=== PATIENT | female | born 1955 | race Caucasian/White ===

== ENCOUNTER 2018-02-15 20:22 | Inpatient (IN) ==
--- NOTE | 2018-02-15 20:55 | Emergency Department Report ---
SOB HPI - General Chief Complaint: Shortness of Breath/Dyspnea Stated Complaint: Diff breathing Time Seen by Provider: 02/15/18 20:41 Source: patient Limitations: physical limitation - History of Present Illness Patient is a 62-year-old female who presents to the emergency room with complaints of shortness of breath and cough. She states she was diagnosed with pneumonia [address] Hannah. She's completed a course of amoxicillin yesterday. She doesn't feel she's improved at all. She is very weak. She is requiring more oxygen than usual. Normally she just sleeps with oxygen (due to COPD), but she's had to use 1-1-1/2 L throughout the day. She states last night she had several episodes where she "couldn't breathe." She was diagnosed with laryngeal cancer in July 2017. She's gone through radiation and chemotherapy. She had surgical resection of the tumor and positive lymph node by Dr. Crawford (ENT). She has lost at least 30 pounds since July as she can only take in water by mouth and has a feeding tube. MD Complaint: shortness of breath, cough - Related Data Home Medications Medication Instructions Recorded Confirmed Ana-Александр Ortegale (potassium 10 meq PO DAILY 45 Days #45 cap 12/01/17 02/15/18 chloride ER) 10 mEq capsule magnesium oxide 400 mg tablet 400 mg PO DAILY 30 Days #30 tab 12/01/17 02/15/18 Methocarbamol [Robaxin] 500 mg PO TID PRN 02/15/18 02/15/18 Multivitamin [One Daily] 1 each PO DAILY 02/15/18 02/15/18 Tramadol [Ultram] 50 mg PO TID PRN 02/15/18 02/15/18 Triamterene/Hctz 37.5/25 Tab 0.5 tab PO DAILY 02/15/18 02/15/18 [MAXZIDE-25 eqv] Previous Rx's Medication Instructions Recorded albuterol sulfate HFA 90 2 puff INH QID #18 g 08/19/17 mcg/actuation aerosol inhaler Neurontin (gabapentin) 600 mg 1,200 mg PO BID #360 tab 12/26/17 tablet Advair Diskus (Fluticasone 250 1 puff INH BID #60 each 01/17/18 mcg-salmeterol 50 mcg)dose powdr for inhalation MS Contin (Morphine sulfate ER)15 15 mg PO TID #90 tab 01/18/18 mg tablet Celexa (citalopram) 20 mg tablet 40 mg PO DAILY #30 tab 01/19/18 trazodone 150 mg tablet 150 mg PO HS #30 tab 01/30/18 Allergies Allergy/AdvReac Type Severity Reaction Status Date / Time venom-honey bee Allergy Severe ANAPHYLAXIS Verified 02/15/18 20:49 prednisone Allergy Intermediate SHAKY,PERSONALITY Verified 02/15/18 20:49 CHANGES latex Allergy Mild RASH,SKIN Verified 02/15/18 20:49 COMES OFF bupropion Allergy Unknown HYPERTENSIO Verified 02/15/18 20:49 N etodolac Allergy Unknown Verified 02/15/18 20:49 codeine AdvReac Unknown PERSONALITY Verified 02/15/18 20:49 CHANGES Review of Systems All systems: reviewed and negative except as stated (has felt feverish and had chills today, cough, shortness of breath, weakness, urinary frequency, dry mouth , diarrhea) PFSH Patient Stated Medical History Migraine Yes Cataracts Yes Dental Problems Yes Hypertension Yes Other Cardiology Yes: blood clots in lungs Asthma Yes Bronchitis Yes Chronic Obstructive Pulmonary Yes: 1L/NC Disease (COPD) Pneumonia Yes: 2013 Pulmonary Embolism Yes Other Respiratory Yes Hx Urinary Tract Infection Yes: HX Clotting Problems Yes: PULMONARY EMBOLISM Osteoarthritis Yes Other Musculoskeletal Yes: FIBROMYALGIA Depression Yes Endometriosis Yes Post Menopausal Yes Clinic Medical History (Last Reviewed 01/04/18 @ 13:58 by SHONA Kevin) Throat cancer (Acute Medical) Anxiety (Chronic Medical) Asthma (Chronic Medical) Bone disorder (Chronic Medical) COPD (chronic obstructive pulmonary disease) (Chronic Medical) Cataracts, bilateral (Chronic Medical) Colon polyps (Chronic Medical) DVT (deep venous thrombosis) (Chronic Medical) Depression (Chronic Medical) Migraine headache (Chronic Medical) Neuropathy (Chronic Medical) Osteoporosis (Chronic Medical) Pneumonia (Chronic Medical) Surgical History: donald cataracts 2009. partial hysterecomy. Placement of PEG tube 08/12/2017. Insertion of Power Port 08/12/2017. Family History: Family History (Last Reviewed 01/04/18 @ 13:58 by SHONA Kevin) Mother Arthritis DVT (deep vein thrombosis) in Cancer of lung IBS (irritable bowel syndrome) Muscle disease Fibromyalgia Sister Arthritis Cancer of utero-ovarian Muscle disease Brother Cancer of lung Father Heart failure High blood pressure High cholesterol Above reviewed - Social History Smoking status: Current every day smoker (1 pack per day) Packs-years: 30 Substance use type: marijuana (smokes daily) Alcohol intake frequency: does not drink Current occupational status: disabled Current residence: Apartment/Private Home Social history: Dr. Hannah-oncologist Dr. Crawford-ENT Dr. Wang-PCP Physical Exam - Limitations Limitations: no limitations - General General appearance: cachectic - Normal Exams: Head:: Normocephalic without trauma Eyes:: Pupils are PERRLA w/ EOMI Neck:: Full range of motion, without adenopathy Cardiovascular:: Regular rate and rhythm, capillary refill Abdomen:: non-distended Integumentary:: No rashes Neurological:: Patient is alert, and oriented, exams w/o gross deficits Psychiatric:: Patient exhibits, appropriate attention - ENT ENT exam: Present: mucous membranes dry - Chest Chest inspection: Present: other (port right chest) - Respiratory Respiratory exam: Present: wheezes (diffuse inspiratory and expiratory), accessory muscle use - Abdominal Exam Abdominal exam: Present: tenderness (left upper quadrant. Feeding tube.) - Extremities Exam Extremities exam: Present: pedal edema (trace) Course - Consultations Consultation #1: Dr Valladares - accepted for hospitalization Time: 23:06 Vital Signs Temperature 97.8 F 02/15/18 20:30 Pulse Rate 90 02/15/18 20:30 Respiratory Rate 20 02/15/18 20:30 Blood Pressure 133/79 02/15/18 20:30 Pulse Oximetry 93 02/15/18 20:30 Temperature 97.8 F 02/15/18 20:30 Pulse Rate 85 02/15/18 23:47 Respiratory Rate 20 02/15/18 23:47 Blood Pressure 115/76 02/15/18 23:47 Pulse Oximetry 94 02/15/18 23:47 Shortness of Breath/Dyspnea - [facility] Narrative Medical decision making narrative: Given patient's presentation of weakness, possibility of pneumonia, and hyponatremia, hospitalist service was contacted for admission. She was given a breathing treatment while in the ED and required 2 L of oxygen to keep her sats greater than 90%. She took her oxygen off to go to the restroom and sats decreased to lower 80s. After discussing case with hospitalist, Levaquin 750 mg IV was given. As patient was being dismissed to the floor, she mentions that she has had some burning in her chest worsens her breathing treatment. Troponin and EKG were ordered for further evaluation. Dr. Barton will follow up on these results, as results are pending at time of this dictation. Admission orders per tele-hospitalist. - Differential Diagnosis Likely: acute exacerbation of chronic obstructive airways disease, congestive heart failure, community acquired pneumonia - Lab Data Result diagrams: 02/15/18 21:49 02/15/18 21:49 Lab Results 02/15/18 02/15/18 02/15/18 Range/Units 21:40 21:49 21:49 WBC 7.0 (4.5-11.0) T/MM3 RBC 4.01 (4.00-5.20) M/MM3 Hgb 14.4 (12-16) GM/DL Hct 39.6 (36-46) % MCV 98.8 (80-100) UM3 MCH 35.9 H (26-34) UUG MCHC 36.4 (31-37) GM/DL RDW Std Deviation 43.9 (36.9-50.2) FL Plt Count 228 (130-400) T/MM3 MPV 8.9 L (9.4-12.4) UM3 Immature Gran % (Auto) 0.0 (0.0-0.5) % Neut % (Auto) 79.7 H (33-66) % Lymph % (Auto) 11.8 L (23-45) % [place] % (Auto) 8.3 (0-9.0) % Eos % (Auto) 0.1 (0-4) % Baso % (Auto) 0.1 (0-2) % Neut # (Auto) 5.6 (1.8-7.7) T/MM3 Lymph # (Auto) 0.8 L (1-4.8) T/MM3 [place] # (Auto) 0.6 (0-0.8) T/MM3 Eos # (Auto) 0.0 (0-0.5) T/MM3 Baso # (Auto) 0.0 (0-0.2) T/MM3 Abs Immat Gran (auto) 0.00 (0.00-0.03) T/MM3 Turbidity < 20 (0-20) Sodium 126 L (134-144) MEQ/L Potassium 4.2 (3.6-5) MEQ/L Chloride 84 L (98-107) MEQ/L Carbon Dioxide 34 H (22-30) MEQ/L Anion Gap 8 (5-15) meq/L BUN 12.0 (7-17) MG/DL Creatinine 0.4 L (0.7-1.2) mg/dL GFR Calculation 163 BUN/Creatinine Ratio 30 H (6-26) RATIO Glucose 85 (65-110) MG/DL Calculated Osmolality 242 L (261-280) MOSM/KG Calcium 9.8 (8.4-10.2) MG/DL Total Bilirubin 0.30 (0.20-1.30) MG/DL Icterus Index < 2 (0-7) AST 43 H (14-36) U/L ALT 32 (1-35) U/L Alkaline Phosphatase 118 (38-126) U/L Total Protein 7.2 (6.3-8.2) g/dL Albumin 4.4 (3.5-5.0) g/dL Globulin 2.8 (2.4-3.6) G/DL Albumin/Globulin Ratio 1.6 (1.1-2.2) RATIO Plasma Lactate (0.6-2.2) MMOL/L Specimen Hemolysis < 15 (0-25) Ur Collection Type Urine, void-cc/notcc Urine Color Yellow (YELLOW) Urine Clarity Clear Urine pH 7.5 (5.0-8.0) Ur Specific [place] 1.010 L (1.015-1.025) Urine Protein Negative (NEGATIVE) Urine Glucose (UA) Negative (NEGATIVE) Urine Ketones Negative (NEGATIVE) Urine Occult Blood Trace-intact (NEGATIVE) Urine Nitrate Negative (NEGATIVE) Urine Bilirubin Negative (NEGATIVE) Urine Urobilinogen 0.2 (NORMAL) EU/DL Ur Leukocyte Esterase Negative (NEGATIVE) Urinalysis Comment Microscopic not ind. 02/15/18 Range/Units 22:31 WBC (4.5-11.0) T/MM3 RBC (4.00-5.20) M/MM3 Hgb (12-16) GM/DL Hct (36-46) % MCV (80-100) UM3 MCH (26-34) UUG MCHC (31-37) GM/DL RDW Std Deviation (36.9-50.2) FL Plt Count (130-400) T/MM3 MPV (9.4-12.4) UM3 Immature Gran % (Auto) (0.0-0.5) % Neut % (Auto) (33-66) % Lymph % (Auto) (23-45) % [place] % (Auto) (0-9.0) % Eos % (Auto) (0-4) % Baso % (Auto) (0-2) % Neut # (Auto) (1.8-7.7) T/MM3 Lymph # (Auto) (1-4.8) T/MM3 [place] # (Auto) (0-0.8) T/MM3 Eos # (Auto) (0-0.5) T/MM3 Baso # (Auto) (0-0.2) T/MM3 Abs Immat Gran (auto) (0.00-0.03) T/MM3 Turbidity (0-20) Sodium (134-144) MEQ/L Potassium (3.6-5) MEQ/L Chloride (98-107) MEQ/L Carbon Dioxide (22-30) MEQ/L Anion Gap (5-15) meq/L BUN (7-17) MG/DL Creatinine (0.7-1.2) mg/dL GFR Calculation BUN/Creatinine Ratio (6-26) RATIO Glucose (65-110) MG/DL Calculated Osmolality (261-280) MOSM/KG Calcium (8.4-10.2) MG/DL Total Bilirubin (0.20-1.30) MG/DL Icterus Index (0-7) AST (14-36) U/L ALT (1-35) U/L Alkaline Phosphatase (38-126) U/L Total Protein (6.3-8.2) g/dL Albumin (3.5-5.0) g/dL Globulin (2.4-3.6) G/DL Albumin/Globulin Ratio (1.1-2.2) RATIO Plasma Lactate 0.7 (0.6-2.2) MMOL/L Specimen Hemolysis (0-25) Ur Collection Type Urine Color (YELLOW) Urine Clarity Urine pH (5.0-8.0) Ur Specific [place] (1.015-1.025) Urine Protein (NEGATIVE) Urine Glucose (UA) (NEGATIVE) Urine Ketones (NEGATIVE) Urine Occult Blood (NEGATIVE) Urine Nitrate (NEGATIVE) Urine Bilirubin (NEGATIVE) Urine Urobilinogen (NORMAL) EU/DL Ur Leukocyte Esterase (NEGATIVE) Urinalysis Comment - Radiology Data Chest x-ray reviewed by Dr. Barton Disposition Clinical Impression: Hyponatremia, Pneumonia, Acute exacerbation of chronic obstructive airways disease Disposition: To [facility] Acute Care Condition: Stable Time of Disposition: 23:00 - Seen By: mary
[2018-02-15] MEDS ORDERED: ALBUTEROL/IPRATROPIUM 2.5mg-0.5mg/3ml NEB AEROSOL ONE (21:19)
[2018-02-15] MEDS: LEVOFLOXACIN PB 750 MG/150 ML BAG IV SCH (23:44)
[2018-02-15] MEDS: NS FLUSH BAG 500ml IV PRN (23:44)
[2018-02-16] MEDS ORDERED: FALL RISK - PHARMACY CONSULT MC ONE (00:56)
[2018-02-16] MEDS ORDERED: ALBUTEROL/IPRATROPIUM 2.5mg-0.5mg/3ml NEB AEROSOL PRN (01:07)
[2018-02-16] MEDS: METHYLPREDNISOLONE SOD SUCC 125mg/2ml INJECTION IVP SCH ×3 (01:17→21:04)
[2018-02-16] MEDS: TRAMADOL 50 MG TABLET PO SCH ×4 (01:17→21:03)
[2018-02-16] MEDS: METHOCARBAMOL 500 MG TABLET PO PRN ×2 (01:18→09:13)
[2018-02-16] MEDS: GABAPENTIN 600 MG TABLET PO SCH ×3 (01:18→21:03)
[2018-02-16] MEDS: NICOTINE 21 MG PATCH TD SCH ×2 (02:30→13:12)
[2018-02-16] MEDS ORDERED: IOHEXOL 300mg/ml 75ml INJECTION ONE (07:14)
[2018-02-16] MEDS ORDERED: SALINE FLUSH 10ml SYRINGE ONE (07:14)
[2018-02-16] MEDS: ALBUTEROL/IPRATROPIUM 2.5mg-0.5mg/3ml NEB AEROSOL SCH ×4 (07:56→19:48)
--- NOTE | 2018-02-16 08:20 | XRay Report ---
INDICATION: soa, cough PROCEDURE: CHEST 2-VIEWS UPRIGHT (PA & LAT) Encounter: Initial Comparison: August 29, 2017 Findings: The lungs are stable in appearance without new focal airspace consolidation. Emphysema and hyperinflation. Right IJ port catheter. There is no pleural effusion or pneumothorax. The heart size, pulmonary vascularity and mediastinal contours are unchanged. IMPRESSION: Stable appearance of the chest without acute cardiopulmonary disease. COPD. .
[2018-02-16] MEDS: CITALOPRAM 40 MG TABLET PO SCH (09:13)
[2018-02-16] MEDS: MAGNESIUM OXIDE 400 MG TABLET PO SCH (09:13)
--- NOTE | 2018-02-16 10:35 | History & Physical Report ---
History of Present Illness Date: 02/16/18 Chief complaint: shortness of breath HPI: Mrs. Garcia is a 62-year-old female who presented to the emergency room yesterday evening complaining of increasing dyspnea for 2 days and nonproductive cough. She was diagnosed with pneumonia 2 weeks earlier after PET scan revealed infiltrate/inflammatory changes at the right base. She was treated with amoxicillin which was completed 2 days ago. Patient reported that she really didn't feel sick at the time Dr. Hannah had the PET scan done for follow-up of head and neck cancer. However in the intervening time she developed increasing dyspnea, increased hypoxia requiring utilization of 1.5 L oxygen 24 hours a day instead of just at night, persistent wheezing, and alternate sensations of chilling and feeling hot. Patient reports that she never took her temperature but is concerned that she had a fever. For several days she was too short of breath actually cough and she is frustrated that she' s been unable to clear secretions because she feels congested. She denies rhinorrhea or sore throat and doesn't feel like she has a "cold" but reports her allergies have been bad. She describes worsening generalized weakness and 30 pound weight loss since cancer diagnosis. She denies edema in the extremities but acknowledges that she self resumed use of diuretics a couple of weeks ago due to edema in the lower extremities. She acknowledges significant fluid intake during the day for chronic dry mouth following radiation therapy for head and neck cancer. Patient reports she was diagnosed with laryngeal carcinoma and thyroid cancer in July 2017 and subsequently underwent resection of tumor and a positive lymph node in July 2017 followed by radiation therapy and chemotherapy which was completed 2 months ago. Chest x- ray in the emergency room revealed hyperinflated lungs consistent with COPD/ emphysema. Patient was admitted with COPD exacerbation and incidental finding of hyponatremia. Review of Systems All systems PM: 10-point ROS was reviewed, no additional remarkable complaints except (chronic cough, urinary frequency, dry mouth, diarrhea with 4 loose stools daily in conjunction with tube feedings, numbness in the hands and feet, chronic back pain, and slimy sensation to the tongue with bad taste in her mouth.) Past Medical History Medical History: Medical History (Last Updated 02/16/18 @ 10:42 by Tessa Ko MD) DDD (degenerative disc disease) DJD (degenerative joint disease) Fibromyalgia Nephrolithiasis Pulmonary emboli 15-20 years ago Throat cancer Anxiety Asthma Bone disorder COPD (chronic obstructive pulmonary disease) Cataracts, bilateral Colon polyps DVT (deep venous thrombosis) Depression Migraine headache Neuropathy Osteoporosis Pneumonia Surgical History: donald cataracts 2009. partial hysterecomy. Placement of PEG tube 08/12/2017. Insertion of Power Port 08/12/2017. Laryngeal cancer resection/lymph node biopsy July 2017 Family History: Family History (Last Reviewed 01/04/18 @ 13:58 by Carrie Brown [facility]) Mother Arthritis DVT (deep vein thrombosis) in Cancer of lung IBS (irritable bowel syndrome) Muscle disease Fibromyalgia Sister Arthritis Cancer of utero-ovarian Muscle disease Brother Cancer of lung Father Heart failure High blood pressure High cholesterol Family History: As Above - Social History Smoking status: Current every day smoker (1 pack per day) Substance use type: marijuana (daily) Alcohol intake frequency: does not drink Household members: spouse Current residence: Apartment/Private Home Social history: PCP- Oncology-Dr. Hannah ENT-Dr. Crawford Alternate decision maker-patient's CODE STATUS-DO NOT INTUBATE Medications Home Medications Medication Instructions Recorded Confirmed Type albuterol sulfate HFA 90 2 puff INH QID #18 g 08/19/17 02/15/18 Rx mcg/actuation aerosol inhaler Chel Bran[place]inkle (potassium 10 meq PO DAILY 45 Days #45 cap 12/01/17 02/15/18 History chloride ER) 10 mEq capsule magnesium oxide 400 mg tablet 400 mg PO DAILY 30 Days #30 tab 12/01/17 02/15/18 History Neurontin (gabapentin) 600 mg 1,200 mg PO BID #360 tab 12/26/17 02/15/18 Rx tablet Advair Diskus (Fluticasone 250 1 puff INH BID #60 each 01/17/18 02/15/18 Rx mcg-salmeterol 50 mcg)dose powdr for inhalation MS Contin (Morphine sulfate ER)15 15 mg PO TID #90 tab 01/18/18 02/15/18 Rx mg tablet Celexa (citalopram) 20 mg tablet 40 mg PO DAILY #30 tab 01/19/18 02/15/18 Rx trazodone 150 mg tablet 150 mg PO HS #30 tab 01/30/18 02/15/18 Rx Methocarbamol [Robaxin] 500 mg PO TID PRN 02/15/18 02/15/18 History Multivitamin [One Daily] 1 each PO DAILY 02/15/18 02/15/18 History Tramadol [Ultram] 50 mg PO TID PRN 02/15/18 02/15/18 History Triamterene/Hctz 37.5/25 Tab 0.5 tab PO DAILY 02/15/18 02/15/18 History [MAXZIDE-25 eqv] Allergies Allergy/AdvReac Type Severity Reaction Status Date / Time venom-honey bee Allergy Severe ANAPHYLAXIS Verified 02/15/18 20:49 prednisone Allergy Intermediate SHAKY,PERSONALITY Verified 02/15/18 20:49 CHANGES latex Allergy Mild RASH,SKIN Verified 02/15/18 20:49 COMES OFF bupropion Allergy Unknown HYPERTENSIO Verified 02/15/18 20:49 N etodolac Allergy Unknown Verified 02/15/18 20:49 codeine AdvReac Unknown PERSONALITY Verified 02/15/18 20:49 CHANGES Exam Vital Signs: Temperature 96.9 F 02/16/18 08:48 Pulse Rate 92 02/16/18 08:48 Respiratory Rate 18 02/16/18 08:48 Blood Pressure 124/82 02/16/18 08:48 Pulse Oximetry 91 -3 L 02/16/18 08:48 EXAM: General-cachectic female, NAD, hoarse voice HEENT-PERRL, EOMI without nystagmus, conjugate gaze, conjunctiva clear, sclera anicteric, facial structures symmetric, oropharynx faint yellow lemon plaques on tongue, neck supple and without adenopathy Lungs-clear to percussion, diffuse expiratory wheezing throughout lung dickey, no rhonchi or crackles Cardiac-regular rhythm, S1-S2-heart tones partially obscured by respiratory sounds Abd-moderately distended, soft, nontender, bowel sounds present; G-tube site clean and dry Ext-without edema Skin-without wounds or generalized rash MS-muscle wasting evident diffusely Neuro-cranial nerves III through XII intact, normal motor tone/power proximally/ distally upper and lower extremities, no tremors, sensation grossly intact to touch 4 extremities Psych-calm, cooperative, flat affect Height/Weight/BMI: Height 1.63 m Weight 41.9 kg Body Mass Index 16.2 Results - Labs CBC & Chem 7: 02/16/18 07:52 02/16/18 07:52 Labs: Initial white count in the emergency room 7.0 with hemoglobin 14.4 and unremarkable differential; sodium last night 126 with chloride 84 and creatinine 0.4; liver enzymes unremarkable, lactic acid 0.7-1.5, procalcitonin < 0.05 Urinalysis unremarkable Urine electrolytes/osmolality pending - Imaging and Cardiology Chest x-ray Status: image reviewed by me (hyperinflated lung dickey without infiltrate or failure; PAC right upper chest/right IJ) Assessment and Plan (1) Hyponatremia Current visit: Yes Status: Acute (2) Acute exacerbation of chronic obstructive airways disease Current visit: Yes Status: Acute Assessment and Plan: Impression: COPD with acute exacerbation Hyponatremia Weakness, generalized Thrush Tobacco abuse Weight loss, probable malnutrition Laryngeal carcinoma Anxiety/depression DDD/DJD hx of PE-remote Plan: Mrs. Garcia is admitted with acute COPD exacerbation following treatment for recent pneumonia. Radiographically there is no evidence of pneumonia at present although treatment was initiated for infection overnight with Levaquin which will be continued pending repeat CT scan which should be obtained later today. Treatment for COPD exacerbation with IV steroids and scheduled/prn breathing treatments will be continued. Patient will benefit from additional management of COPD at discharge if she can afford addition of Spiriva or alternate LAMA. Hyponatremia has been incidentally identified and is likely due to excess water intake as she describes drinking at least 12 large glasses of water daily due to dry mouth in conjunction with medications known to contribute to hyponatremia including hydrochlorothiazide and SSRIs. Fluid restriction has been initiated and patient has been encouraged to switch some of her water consumption to Gatorade or Powerade. HCTZ discontinued but will continue SSRIs at this time. May require alternate diuretic if recurrent edema. She may be most effectively treated by adding salt to tube feedings to balance will inevitably return to water ingestion for symptomatic management. Biotene will be resumed to help manage dry mouth and she is encouraged to use ice chips in place of water. Dietary was consulted to assist with tube feeding management. Reassess sodium later today. PT/OT consults. Nystatin suspension for thrush. DO NOT INTUBATE order written after discussion of patient's wishes; she would like active cardiac interventions in the event of cardiac arrest. Old records reviewed; X-rays imaged by myself. - Physician Narrative Narrative: Date: 02/16/18 Time: 1025 Hospital Course Summary Disclaimer: The visit summary below is not to be considered part of the above Progress Note. Hospital Course: Admission 02/15/18-02/16/18 Mrs. Garcia is admitted with acute COPD exacerbation following treatment for recent pneumonia. Radiographically there is no evidence of pneumonia at present although treatment was initiated for infection overnight with Levaquin which will be continued pending repeat CT scan which should be obtained later today. Treatment for COPD exacerbation with IV steroids and scheduled/prn breathing treatments will be continued. Patient will benefit from additional management of COPD at discharge if she can afford addition of Spiriva or alternate LAMA. Hyponatremia has been incidentally identified and is likely due to excess water intake as she describes drinking at least 12 large glasses of water daily due to dry mouth in conjunction with medications known to contribute to hyponatremia including hydrochlorothiazide and SSRIs. Fluid restriction has been initiated and patient has been encouraged to switch some of her water consumption to Gatorade or Powerade. She may be most effectively treated by adding salt to tube feedings to balance will inevitably return to water ingestion for symptomatic management. Biotene will be resumed to help manage dry mouth and she is encouraged to use ice chips in place of water. Dietary was consulted to assist with tube feeding management. Reassess sodium later today. PT/OT consults. Nystatin suspension for thrush. DO NOT INTUBATE order written after discussion of patient's wishes; she would like active cardiac interventions in the event of cardiac arrest.
[2018-02-16] MEDS ORDERED: SALIVA SUBSTITUTE MOUTH SPRAY 1.5oz PO PRN (10:50)
[2018-02-16] MEDS ORDERED: ONDANSETRON 4 MG/2 ML INJECTION IVP PRN (10:58)
[2018-02-16] MEDS ORDERED: ACETAMINOPHEN 325 MG TABLET PO PRN (10:59)
[2018-02-16] MEDS: NICOTINE PATCH REMOVAL TD SCH (13:11)
[2018-02-16] MEDS: NYSTATIN 500,000 units/5 ml ORAL LIQUID PO SCH ×3 (13:13→21:04)
--- NOTE | 2018-02-16 13:32 | CT Scan Report ---
Indication: hypoxia PROCEDURE: CT chest w con: Encounter: Initial Comparison: Chest x-ray from yesterday and CT chest dated December 12, 2017 Technique: Axial CT images were performed through the chest after the administration of intravenous contrast. Coronal and sagittal two-dimensional reformats. Automated Exposure Control and Iterative Reconstruction dose reducing techniques were utilized. Contrast: Omnipaque 300 73 mL Findings: Severe emphysema is again seen throughout both lungs with areas of atelectasis or scarring in the left lower lobe. Scarring in the medial right middle lobe also noted. There are a few small new tree-in-bud type opacities in the right lower lobe, best seen on axial image #54. No pleural effusion or pneumothorax. Areas of mucus plugging the lower lobe bronchi. No axillary or mediastinal adenopathy. Heart size is stable. No pericardial effusion. The upper abdomen shows no acute findings. Gastrostomy tube. Impression: New minimal infectious or inflammatory lower lobe infiltrates could represent atypical pneumonia or minor aspiration event. .
[2018-02-16] MEDS: SODIUM CHLORIDE 1 GM TABLET PO SCH (21:03)
[2018-02-16] MEDS: TRAZODONE 50 MG TABLET PO SCH (21:04)
[2018-02-16] MEDS: SALINE FLUSH 10ml SYRINGE IVF PRN (21:04)
[2018-02-17] MEDS: LEVOFLOXACIN PB 750 MG/150 ML BAG IV SCH (00:02)
[2018-02-17] MEDS: NS FLUSH BAG 500ml IV PRN (00:03)
[2018-02-17] MEDS: ALBUTEROL/IPRATROPIUM 2.5mg-0.5mg/3ml NEB AEROSOL SCH ×4 (06:49→19:27)
[2018-02-17] MEDS: NYSTATIN 500,000 units/5 ml ORAL LIQUID PO SCH ×4 (08:26→20:26)
[2018-02-17] MEDS: NICOTINE 21 MG PATCH TD SCH (08:26)
[2018-02-17] MEDS: ENOXAPARIN 40 MG/0.4 ML INJECTION SQ SCH (08:26)
[2018-02-17] MEDS: CITALOPRAM 40 MG TABLET PO SCH (08:27)
[2018-02-17] MEDS: SODIUM CHLORIDE 1 GM TABLET PO SCH ×2 (08:27→20:26)
[2018-02-17] MEDS: MAGNESIUM OXIDE 400 MG TABLET PO SCH (08:27)
[2018-02-17] MEDS: GABAPENTIN 600 MG TABLET PO SCH ×2 (08:27→20:25)
[2018-02-17] MEDS: TRAMADOL 50 MG TABLET PO SCH ×3 (08:27→20:26)
[2018-02-17] MEDS: NICOTINE PATCH REMOVAL TD SCH (08:28)
[2018-02-17] MEDS: METHYLPREDNISOLONE SOD SUCC 125mg/2ml INJECTION IVP SCH ×2 (08:32→20:27)
--- NOTE | 2018-02-17 16:21 | Progress Note ---
- Date 02/17/18 Subjective: Mrs. Garcia reports that her breathing is improved today with residual exertional dyspnea and some cough now productive of secretions because she can breathe better/deeper and actually clear secretions. She denied chest pain today that no nausea or vomiting. She felt improved enough to try some solid food in addition to her tube feedings. She continues to complain of dry mouth but is tolerating fluid restriction as initiated yesterday for hyponatremia. She denies lightheadedness and has been ambulating in the room without difficulty. Objective Vital signs: Temperature 96.6 F L 02/17/18 07:39 Pulse Rate 101 H 02/17/18 07:39 Respiratory Rate 20 02/17/18 16:00 Blood Pressure 101/64 02/17/18 07:39 Pulse Oximetry 91 -4 L 02/17/18 16:00 I/O 2766/3150 NAD, alert, appears much more comfortable and when seen yesterday Conjunctiva clear, sclera anicteric, oropharynx clear Respirations nonlabored, fair airflow with wheezing present only when the patient coughs; coarse breath sounds at the mid and lower lungs R>L Regular rhythm, S1-S2, low-grade tachycardia Abdomen soft, mildly distended but nontender, bowel sounds present Extremities without edema Height/Weight/BMI: Height 1.63 m Weight 44 kg Body Mass Index 15.8 Results - Labs CBC & Chem 7: 02/17/18 04:33 02/17/18 04:33 Labs: Urine Na 20, urine Cr 30.9, urine osm 227; FeNa 0.21% Prealbmin 16 Assessment and Plan (1) Hyponatremia Current visit: Yes Status: Acute (2) Acute exacerbation of chronic obstructive airways disease Current visit: Yes Status: Acute Assessment and Plan: Impression: COPD with acute exacerbation Acute hypoxic respiratory failure Hyponatremia Weakness, generalized Thrush Tobacco abuse Weight loss, mild protein malnutrition Laryngeal carcinoma Anxiety/depression DDD/DJD hx of PE-remote Plan: Respiratory symptoms improving slowly; convert to oral Levaquin with first dose in the morning. Continue breathing treatments, decrease Solu-Medrol to 62.5 mg IV every 12 hours. Patient previously intolerant of prednisone; anticipate converting to Medrol when ready to switch to oral which could be as soon as tomorrow. Continues to require supplemental oxygen at 3-4 L continuously; previously on 1.5 L at night only. Sodium improving slowly with fluid restriction in addition of salt tablets. Largely due to high intake of free water in conjunction with chronic dry mouth following radiation therapy. No edema at present, patient will need alternate diuretic at discharge for prn use to avoid resumption of HCTZ in future. Ambulated with physical therapy earlier today, desaturated slightly with activities. DVT Prophylaxis: SCD's Resuscitation Status: Do Not Intubate - Physician Narrative Narrative: Date: 02/17/18 Time: 1618 Hospital Course Summary Disclaimer: The visit summary below is not to be considered part of the above Progress Note. Hospital Course: Admission 02/15/18-02/16/18 Mrs. Garcia is admitted with acute COPD exacerbation following treatment for recent pneumonia. Radiographically there is no evidence of pneumonia at present although treatment was initiated for infection overnight with Levaquin which will be continued pending repeat CT scan which should be obtained later today. Treatment for COPD exacerbation with IV steroids and scheduled/prn breathing treatments will be continued. Patient will benefit from additional management of COPD at discharge if she can afford addition of Spiriva or alternate LAMA. Hyponatremia has been incidentally identified and is likely due to excess water intake as she describes drinking at least 12 large glasses of water daily due to dry mouth in conjunction with medications known to contribute to hyponatremia including hydrochlorothiazide and SSRIs. Fluid restriction has been initiated and patient has been encouraged to switch some of her water consumption to Gatorade or Powerade. She may be most effectively treated by adding salt to tube feedings to balance will inevitably return to water ingestion for symptomatic management. Biotene will be resumed to help manage dry mouth and she is encouraged to use ice chips in place of water. Dietary was consulted to assist with tube feeding management. Reassess sodium later today. PT/OT consults. Nystatin suspension for thrush. DO NOT INTUBATE order written after discussion of patient's wishes; she would like active cardiac interventions in the event of cardiac arrest. 02/17/18 Respiratory symptoms improving slowly; convert to oral Levaquin with first dose in the morning. Continue breathing treatments, decrease Solu-Medrol to 62.5 mg IV every 12 hours. Patient previously intolerant of prednisone; anticipate converting to Medrol when ready to switch to oral which could be as soon as tomorrow. Continues to require supplemental oxygen at 3-4 L continuously; previously on 1.5 L at night only. Sodium improving slowly with fluid restriction in addition of salt tablets. Largely due to high intake of free water in conjunction with chronic dry mouth following radiation therapy. No edema at present, patient will need alternate diuretic at discharge for prn use to avoid resumption of HCTZ in future. Ambulated with physical therapy earlier today, desaturated slightly with activities.
[2018-02-17 17:07] VITALS: BMI 16.6
[2018-02-17] MEDS: TRAZODONE 50 MG TABLET PO SCH (20:26)
[2018-02-18] MEDS ORDERED: LEVOFLOXACIN 750 MG TABLET PO SCH (06:30)
[2018-02-18] MEDS: ALBUTEROL/IPRATROPIUM 2.5mg-0.5mg/3ml NEB AEROSOL SCH ×2 (07:05→11:00)
[2018-02-18 08:16] VITALS: BP 113/69; TEMP 96.6
[2018-02-18] MEDS: CITALOPRAM 40 MG TABLET PO SCH (09:07)
[2018-02-18] MEDS: ENOXAPARIN 40 MG/0.4 ML INJECTION SQ SCH (09:07)
[2018-02-18] MEDS: GABAPENTIN 600 MG TABLET PO SCH (09:07)
[2018-02-18] MEDS: METHYLPREDNISOLONE SOD SUCC 125mg/2ml INJECTION IVP SCH (09:08)
[2018-02-18] MEDS: MAGNESIUM OXIDE 400 MG TABLET PO SCH (09:08)
[2018-02-18] MEDS: NICOTINE 21 MG PATCH TD SCH (09:09)
[2018-02-18] MEDS: SALINE FLUSH 10ml SYRINGE IVF PRN (09:10)
[2018-02-18] MEDS: SODIUM CHLORIDE 1 GM TABLET PO SCH (09:10)
[2018-02-18] MEDS: NYSTATIN 500,000 units/5 ml ORAL LIQUID PO SCH (09:10)
[2018-02-18] MEDS: TRAMADOL 50 MG TABLET PO SCH (09:10)
[2018-02-18] MEDS: NICOTINE PATCH REMOVAL TD SCH (09:10)
[2018-02-18 11:07] VITALS: RESP 14; O2SAT 96
[2018-02-18 11:26] VITALS: PULSE 96
--- NOTE | 2018-02-18 12:12 | Discharge Summary ---
Discharge Information Date of admission: 02/15/18 23:12 Anticipated date of discharge: 02/18/18 Attending Physician: Tessa Ko MD Primary care physician: Sandip Ma MD - Discharge Diagnosis (1) Acute exacerbation of chronic obstructive airways disease Status: Acute (2) Hyponatremia Status: Acute COPD with acute exacerbation Acute hypoxic respiratory failure Hyponatremia - improved Hyperkalemia (5.2) Weakness, generalized Thrush Tobacco abuse Weight loss, mild protein malnutrition Laryngeal carcinoma Anxiety/depression DDD/DJD hx of PE-remote - Laboratory Labs: 02/18/18 05:30 02/18/18 05:30 - Radiology Radiology: Date of Exam: 02/15/18 PROCEDURE: CHEST 2-VIEWS UPRIGHT (PA & LAT) Findings: The lungs are stable in appearance without new focal airspace consolidation. Emphysema and hyperinflation. Right IJ port catheter. There is no pleural effusion or pneumothorax. The heart size, pulmonary vascularity and mediastinal contours are unchanged. IMPRESSION: Stable appearance of the chest without acute cardiopulmonary disease. COPD. = = = = = = = = = = = = = = = = = = = = = = = = = = = = = = = = = = = = = = = = = = = = = = = = = = = = = = = = = = = Date of Exam: 02/16/18 PROCEDURE: CT chest w con: Findings: Severe emphysema is again seen throughout both lungs with areas of atelectasis or scarring in the left lower lobe. Scarring in the medial right middle lobe also noted. There are a few small new tree-in-bud type opacities in the right lower lobe, best seen on axial image #54. No pleural effusion or pneumothorax. Areas of mucus plugging the lower lobe bronchi. No axillary or mediastinal adenopathy. Heart size is stable. No pericardial effusion. The upper abdomen shows no acute findings. Gastrostomy tube. Impression: New minimal infectious or inflammatory lower lobe infiltrates could represent atypical pneumonia or minor aspiration event. History of Present Illness HPI: Mrs. Garcia is a 62-year-old female who presented to the emergency room yesterday evening complaining of increasing dyspnea for 2 days and nonproductive cough. She was diagnosed with pneumonia 2 weeks earlier after PET scan revealed infiltrate/inflammatory changes at the right base. She was treated with amoxicillin which was completed 2 days ago. Patient reported that she really didn't feel sick at the time Dr. Hannah had the PET scan done for follow-up of head and neck cancer. However in the intervening time she developed increasing dyspnea, increased hypoxia requiring utilization of 1.5 L oxygen 24 hours a day instead of just at night, persistent wheezing, and alternate sensations of chilling and feeling hot. Patient reports that she never took her temperature but is concerned that she had a fever. For several days she was too short of breath actually cough and she is frustrated that she' s been unable to clear secretions because she feels congested. She denies rhinorrhea or sore throat and doesn't feel like she has a "cold" but reports her allergies have been bad. She describes worsening generalized weakness and 30 pound weight loss since cancer diagnosis. She denies edema in the extremities but acknowledges that she self resumed use of diuretics a couple of weeks ago due to edema in the lower extremities. She acknowledges significant fluid intake during the day for chronic dry mouth following radiation therapy for head and neck cancer. Patient reports she was diagnosed with laryngeal carcinoma and thyroid cancer in July 2017 and subsequently underwent resection of tumor and a positive lymph node in July 2017 followed by radiation therapy and chemotherapy which was completed 2 months ago. Chest x- ray in the emergency room revealed hyperinflated lungs consistent with COPD/ emphysema. Patient was admitted with COPD exacerbation and incidental finding of hyponatremia. Objective Vital signs: Temperature 96.6 F L 02/18/18 08:00 Pulse Rate 96 02/18/18 11:24 Respiratory Rate 14 02/18/18 11:00 Blood Pressure 113/69 02/18/18 08:00 Pulse Oximetry 96 02/18/18 11:24 Height/Weight/BMI: Height 1.63 m Weight 44.5 kg Body Mass Index 16.6 - Constitutional Present: mild distress (anxious, tearful), thin - Routine HEENT Exam Head: Present: normocephalic Eye: Present: PERRL. Absent: conjunctival icterus, scleral injection ENT: Present: mucous membranes dry - Routine Respiratory Exam Present: decreased breath sounds, prolonged expiratory phase, wheezes (faint), diminished air movement - Routine Cardiovascular Exam Present: RRR, S1, S2 - Routine Abdominal Exam Present: soft, normoactive bowel sounds, non distended, non tender - Routine Extremities Exam Present: no edema, pulses intact - Routine Skin Exam Present: intact, dry, warm - Routine Neurological Exam Present: alert, oriented X3, moving all extremities, vision grossly intact, hearing grossly intact, normal speech - Routine Psychiatric Exam Present: cooperative, anxious Hospital Course This is a general summary of the patient's hospital course. For more details refer to the complete medical record. Hospital course: Mrs. Garcia was admitted on 02/15/18 with acute COPD exacerbation following treatment for recent pneumonia. Levaquin was started, initially IV then later converted to oral. She was given IV steroids and scheduled/PRN DuoNeb treatments. She was also found to be hyponatremic with a sodium level of 126, which worsened before improving with sodium restriction and salt tabs. Her HCTZ was discontinued and could have been contributing to low sodium. By day of discharge her sodium was up to 133. She was encouraged to start taking 1 tsp of table salt per day at home and also substitute some of her water intake with Gatorade or Powerade. She had thrush on admission and was started on Nystatin. By 02/17/18, her symptoms were slowly improving. IV steroids were tapered. She was still requiring 3-4L of continuous oxygen. In contrast, at home she was previously on 1.5L at night though on day of discharge she admitted that during allergy season she also has to use oxygen PRN during the day at variable flow rates. She has a pulse oximeter at home and adjusts her flow rate to maintain sats >90%. Since she has intermittent issues with edema, will Rx Lasix 20 mg PRN to use in place of HCTZ, which was discontinued. Of note, K was slightly high at 5.2 on day of discharge - no KDur Rx was provided. She has poor tolerance of prednisone so she was sent out with Rx methylprednisolone instead. Recommend follow up with Anil in [address] Hannah as scheduled. Time spent with patient: discharge greater than 30 minutes Resuscitation Status: Do Not Intubate Discharge Plan - Discharge Disposition Discharge Date: 02/18/18 Disposition: Discharged Home, Self-Care *Condition: Stable Reason For Visit (Visit label in EMR): COPD exacerbation, hyponatremia - Discharge Medications *Discharge Medications: New Furosemide [Lasix 20 mg Tab] 1 tab PO DAILY PRN #30 tab PRN Reason: Edema Ipratropium [place] 1 dose AEROSOL QID #120 vial Levofloxacin [Levaquin] 750 mg PO ACB #3 tab methylPREDNISolone [Methylprednisolone] 32 mg PO DAILY #10 tab Saliva Substitute Mouth Prue [Biotene Moisturizing Mouth [place]] 3 spray PO PRN PRN spray PRN Reason: Dry Mouth Albuterol Neb (0.083%) [Proventil Neb (0.083%)] 2.5 mg AEROSOL QID #120 vial Continue Methocarbamol [Robaxin] 500 mg PO TID PRN PRN Reason: Prn Orders Multivitamin [One Daily] 1 each PO DAILY Tramadol [Ultram] 50 mg PO TID PRN PRN Reason: Pain Klor-Con Sprinkle (potassium chloride ER) 10 mEq capsule 10 meq PO DAILY 45 Days #45 cap magnesium oxide 400 mg tablet 400 mg PO DAILY 30 Days #30 tab MS Contin (Morphine sulfate ER)15 mg tablet 15 mg PO TID #90 tab Celexa (citalopram) 20 mg tablet 40 mg PO DAILY #30 tab trazodone 150 mg tablet 150 mg PO HS #30 tab Neurontin (gabapentin) 600 mg tablet 1,200 mg PO BID #360 tab Advair Diskus (Fluticasone 250 mcg-salmeterol 50 mcg)dose powdr for inhalation 1 puff INH BID #60 each Changed Albuterol Sulfate [Proventil Hfa 90mcg] 2 puff INH QID PRN #18 g PRN Reason: Shortness Of Air Discontinued Triamterene/Hctz 37.5/25 Tab [MAXZIDE-25 eqv] 0.5 tab PO DAILY - Discharge Packet/Instructions *Diet: Start taking 1 tsp of table salt (mixed with water) per day at home and also substitute some of your water intake with Gatorade or Powerade. Resume tube feeds. *Activity: Wear oxygen to maintain sats of 90%. *Pain Management/Treatment: Home Rx meds. *Wound Care: N/A Additional Instructions: You may take furosemide on an as-needed basis for leg swelling. Have labs rechecked in 1 week. *Expected Signs/Symptoms: Shortness of breath, cough should gradually improve. *Notify Physician if: Increased shortness of breath, chest pain, fever, dizziness, passing out, confusion, leg swelling, or any new concerns. *During Business Hours Contact: Dr. Ma at [facility] or contact Dr. Hannah. *After Business Hours Contact: The on-call provider at [facility]. *Pending Lab/Results: No Pending Lab Outpatient Orders: BMP - Basic Metabolic - [facility] Time Frame: 1 Week, Location: None Selected - Referrals/Follow Up *Referrals/Follow Up: Sandip Ma MD [Primary Care Provider] - 1 Week Riley Hannah MD [Physician] - (On Tuesday as previously scheduled) - Patient Handouts Patient Handouts: Emphysema (GEN), Hyponatremia (GEN) - Dismissal Complete Discharge Instructions are:: Complete Physician Narrative - Narrative Physician: Tessa Ko MD Attestation Narrative: Date: 02/18/18 Time: 1320 I have independently evaluated and examined this patient. I reviewed the chart, the patient's history, and the BUSINESS PROCESS LEAD/PA's documented findings as above. We discussed and formulated the assessment and plan as above with additions as below: Mrs. Garcia reports her breathing is improved significantly although she remains on 3 L supplemental oxygen compared to baseline. She has minimal cough and has had no fever. Sodium is improved to 133. She is anxious to discharge home. Ambulatory oximetry was obtained demonstrating need to increase oxygen to 4 L with activity. Patient is alert and in no distress. Respirations are nonlabored with decreased breath sounds throughout and faint expiratory wheezing. Medications were reviewed with the patient in detail. We discussed initiation of Spiriva or an alternate LAMA but she was concerned about cost and subsequently we're discharging with nebulized albuterol/ipratropium. Other medication changes are described above; patient reports she is taking potassium chronically in conjunction with magnesium even when not on diuretics. Will ask that electrolytes be reassessed when she sees Dr. Hannah on Tuesday as it's unclear if potassium will be needed daily if reduced fluid intake maintained as an outpatient.
--- NOTE | 2018-02-20 16:34 | Right on Track Program ---
Right on Track Program Date of Discharge: 02/18/18 Home Medications: Home Medications Medication Instructions Recorded Confirmed Klor-Con Sprinkle (potassium 10 meq PO DAILY 45 Days #45 cap 12/01/17 02/15/18 chloride ER) 10 mEq capsule magnesium oxide 400 mg tablet 400 mg PO DAILY 30 Days #30 tab 12/01/17 02/15/18 Methocarbamol [Robaxin] 500 mg PO TID PRN 02/15/18 02/15/18 Multivitamin [One Daily] 1 each PO DAILY 02/15/18 02/15/18 Tramadol [Ultram] 50 mg PO TID PRN 02/15/18 02/15/18 Previous Rx's Medication Instructions Recorded Neurontin (gabapentin) 600 mg 1,200 mg PO BID #360 tab 12/26/17 tablet Advair Diskus (Fluticasone 250 1 puff INH BID #60 each 01/17/18 mcg-salmeterol 50 mcg)dose powdr for inhalation MS Contin (Morphine sulfate ER)15 15 mg PO TID #90 tab 01/18/18 mg tablet Celexa (citalopram) 20 mg tablet 40 mg PO DAILY #30 tab 01/19/18 trazodone 150 mg tablet 150 mg PO HS #30 tab 01/30/18 Albuterol Neb (0.083%) [Proventil 2.5 mg AEROSOL QID #120 vial 02/18/18 Neb (0.083%)] Albuterol Sulfate [Proventil Hfa 2 puff INH QID PRN #18 g 02/18/18 90mcg] Furosemide [Lasix 20 mg Tab] 1 tab PO DAILY PRN #30 tab 02/18/18 Ipratropium [place] 1 dose AEROSOL QID #120 vial 02/18/18 Levofloxacin [Levaquin] 750 mg PO ACB #3 tab 02/18/18 Saliva Substitute Mouth [place] 3 spray PO PRN PRN spray 02/18/18 [Biotene Moisturizing Mouth [place]] methylPREDNISolone 32 mg PO DAILY #10 tab 02/18/18 [Methylprednisolone] - Right on Track Program Phone call Date: 02/20/18 Discharge Summary Received: Yes Care Plan Received: Yes Follow Up: Follow Up Appointment Scheduled Education: Diagnosis Education Reviewed, Education Provided To Caregiver Referral: Primary Care Physician Comments: I called Diana on 02/20/18. She states her oxygen is set at 3L currently. She is tired - added she hasn't had a nap today and has been moving around more. She took a Lasix today d/t leg swelling - she knows not to take it everyday. She was able to get all of her Rx filled. She commented during our phone conversation that her saturation was 98-99% and that she needs to lower her oxygen to aim for goal of 93%. She has f/u appointment scheduled with Dr. Hannah. She has no questions about her dc instructions. Her depression and anxiety have improved since going home. Recommendations For Follow-up: She feels comfortable at home with her , an EMT, and her daughter in law , a nurse - she didn't feel it was necessary for me to come out to check on her. We reviewed what to do if her breathing worsens - take a breathing treatment, rest, repeat. If that doesn't work, she may contact her PCP or if sx are severe, return to the ED. - Problems (1) Hyponatremia Code(s): E87.1 - Hypo-osmolality and hyponatremia Status: Acute (2) Acute exacerbation of chronic obstructive airways disease Code(s): J44.1 - Chronic obstructive pulmonary disease with (acute) exacerbation Status: Acute
== END 2018-02-18 13:15 | disposition home or self-care (01) | DRG 191 ==
LOC: ED 20:22 → MED 23:12
PROVIDERS: ADMIT Internal Medicine; ATTEND Internal Medicine

== ENCOUNTER 2018-02-20 20:02 | Inpatient (IN) ==
--- NOTE | 2018-02-20 20:59 | Emergency Department Report ---
General Adult HPI - General Chief complaint: Shortness of Breath/Dyspnea Stated complaint: SOA Source: patient Mode of arrival: ambulatory Limitations: no limitations - History of Present Illness HPI narrative: 62-year-old female presents the emergency department with the chief complaint of shortness of breath. Patient noted onset of symptoms on Tuesday after she requested to be discharged from the hospital. She notes a cough that is productive of a yellow phlegm. She notes wheezing. She denies any current pain or discomfort. She was at home when her symptoms began. Symptoms have been persistent in nature since onset. No other complaints or associated symptoms at this time. She is using increased oxygen by nasal cannula from 1.5L to 3.0L. - Related Data Home Medications Medication Instructions Recorded Confirmed Methocarbamol [Robaxin] 500 mg PO TID PRN 02/15/18 02/20/18 Multivitamin [One Daily] 1 each PO DAILY 02/15/18 02/20/18 Tramadol [Ultram] 50 mg PO TID PRN 02/15/18 02/20/18 Citalopram [Celexa] 40 mg PO DAILY 02/20/18 02/20/18 Furosemide [Lasix 20 mg Tab] 20 mg PO DAILY PRN 02/20/18 02/20/18 Gabapentin [Neurontin] 1,200 mg PO BID 02/20/18 02/20/18 Magnesium Oxide [Magnesium] 400 mg PO DAILY 02/20/18 02/20/18 Morphine Sulfate *SR* [Ms Contin] 15 mg PO TID 02/20/18 02/20/18 Potassium Chloride 10 meq PO DAILY 02/20/18 02/20/18 Trazodone HCl 150 mg PO HS 02/20/18 02/20/18 Previous Rx's Medication Instructions Recorded Albuterol Neb (0.083%) [Proventil 2.5 mg AEROSOL QID #120 vial 02/18/18 Neb (0.083%)] Albuterol Sulfate [Proventil Hfa 2 puff INH QID PRN #18 g 02/18/18 90mcg] Ipratropium [place] 1 dose AEROSOL QID #120 vial 02/18/18 Levofloxacin [Levaquin] 750 mg PO ACB #3 tab 02/18/18 Saliva Substitute Mouth [place] 3 spray PO PRN PRN spray 04/28/18 [Biotene Moisturizing Mouth [place]] methylPREDNISolone 32 mg PO DAILY #10 tab 02/18/18 [Methylprednisolone] Allergies Allergy/AdvReac Type Severity Reaction Status Date / Time venom-honey bee Allergy Severe ANAPHYLAXIS Verified 02/20/18 20:19 prednisone Allergy Intermediate SHAKY,PERSONALITY Verified 02/20/18 20:19 CHANGES latex Allergy Mild RASH,SKIN Verified 02/20/18 20:19 COMES OFF bupropion Allergy Unknown HYPERTENSIO Verified 02/20/18 20:19 N etodolac Allergy Unknown Verified 02/20/18 20:19 codeine AdvReac Unknown PERSONALITY Verified 02/20/18 20:19 CHANGES Review of Systems Constitutional: Denies: fever, chills Eyes: Denies: eye pain, vision change ENT: Denies: ear pain, throat pain Cardiovascular: Denies: chest pain, palpitations Respiratory: Reports: cough, dyspnea, wheezes. Denies: hemoptysis Gastrointestinal: Denies: abdominal pain, nausea, vomiting, diarrhea Genitourinary: Denies: urgency, dysuria Musculoskeletal: Denies: back pain, arthralgia Integumentary: Denies: erythema, rash Neurological: Denies: headache, numbness, paresthesias Psychiatric: Denies: anxiety, depression Endocrine: Denies: polydipsia, polyuria Hematological/Lymphatic: Denies: easy bruising, lymphadenopathy Allergic/Immunologic: Denies: facial swelling, urticaria PFSH Patient Stated Medical History Migraine Yes Cataracts Yes: REMOVED BILATERAL Dental Problems Yes: DOES NOT HAVE TEETH/DENTURES Hypertension Yes Other Cardiology Yes: blood clots in lungs Asthma Yes Bronchitis Yes Chronic Obstructive Pulmonary Yes: 1-3L HOME O2 Disease (COPD) Pneumonia Yes: 2014 Pulmonary Embolism Yes Other Respiratory Yes Hx Urinary Tract Infection Yes: HX Clotting Problems Yes: PULMONARY EMBOLISM Osteoarthritis Yes Other Musculoskeletal Yes: FIBROMYALGIA Depression Yes Endometriosis Yes Post Menopausal Yes Clinic Medical History (Last Updated 02/16/18 @ 10:42 by Tessa Ko MD) DDD (degenerative disc disease) (Acute Medical) DJD (degenerative joint disease) (Acute Medical) Fibromyalgia (Acute Medical) Nephrolithiasis (Acute Medical) Pulmonary emboli (Acute Medical) 15-20 years ago Throat cancer (Acute Medical) Anxiety (Chronic Medical) Asthma (Chronic Medical) Bone disorder (Chronic Medical) COPD (chronic obstructive pulmonary disease) (Chronic Medical) Cataracts, bilateral (Chronic Medical) Colon polyps (Chronic Medical) DVT (deep venous thrombosis) (Chronic Medical) Depression (Chronic Medical) Migraine headache (Chronic Medical) Neuropathy (Chronic Medical) Osteoporosis (Chronic Medical) Pneumonia (Chronic Medical) Surgical History: donald cataracts 2009. partial hysterecomy. Placement of PEG tube 08/12/2017. Insertion of Power Port 08/12/2017. Laryngeal cancer resection/lymph node biopsy July 2017 Family History: Family History (Last Reviewed 01/04/18 @ 13:58 by Carrie Brown Miri) Mother Arthritis DVT (deep vein thrombosis) in Cancer of lung IBS (irritable bowel syndrome) Muscle disease Fibromyalgia Sister Arthritis Cancer of utero-ovarian Muscle disease Brother Cancer of lung Father Heart failure High blood pressure High cholesterol - Social History Smoking status: Current every day smoker Packs-years: 30 Substance use type: marijuana (daily) Alcohol intake frequency: does not drink Household members: spouse Current occupational status: disabled Current residence: Apartment/Private Home Physical Exam - Limitations Limitations: no limitations - General General appearance: alert, in no apparent distress - Normal Exams: Head:: Normocephalic without trauma Eyes:: Pupils are PERRLA w/ EOMI, No scleral icterus, irritation, or foreign bodies noted ENMT:: No facial trauma, nasal exudates, pharyngeal erythema, or exudates are noted Dental: No fractured, loose, or missing teeth noted Neck:: Full range of motion, without adenopathy, JVD, bruits or thyromegaly Chest/Respirations:: with good airflow (bilateral end expiratory wheezes.), and symmetry bilaterally Cardiovascular:: Regular rate and rhythm, without murmur or gallop, Pulses 2+ all extremities, capillary refill, <2 seconds all extremities Abdomen:: Bowel sounds positive, soft, non-tender, non-distended, no hepatosplenomegaly, masses or bruits noted Lymphatic:: No lymphadenopathy, or lymphedema noted Musculoskeletal:: No tenderness, or deformity noted, good range of motion, all extremities Integumentary:: No rashes, hives, or bruising noted, hair and nails, without abnormality Neurological:: Patient is alert, and oriented, cranial nerves, motor/sensory/ cerebellar, exams w/o gross deficits, to observation Psychiatric:: Patient exhibits, appropriate attention, emotion and affect Course Vital Signs Temperature 97.5 F 02/20/18 20:10 Pulse Rate 92 02/20/18 20:10 Respiratory Rate 22 02/20/18 20:10 Blood Pressure 149/88 H 02/20/18 20:10 Pulse Oximetry 93 02/20/18 20:10 Temperature 96.6 F L 02/21/18 03:53 Pulse Rate 92 02/21/18 03:53 Respiratory Rate 20 02/21/18 03:53 Blood Pressure 148/89 H 02/21/18 03:53 Pulse Oximetry 92 02/21/18 03:53 Medical Decision Making - MDM Narrative Medical decision making narrative: Labs / imaging were discussed in detail with the patient and family and questions are answered. Patient is given a DuoNeb treatment in the emergency department. She is given 125 mg of Solu-Medrol IV 1. She is given Levaquin 750 mg IV times one. Patient is admitted to the service of the hospitalist after discussion with Dr. Triana who agrees to accept the patient to his service. Patient is hypoxic at 85% with ambulation in the emergency department on her home O2 settings. She is requiring increased oxygen concentration at 3 L by nasal cannula. Patient is admitted to the hospital in improved condition. No further orders from excepting physician who is in agreement with the current plan of management. - Differential Diagnosis pneumonia, COPD, URI, viral syndrome - Lab Data Result diagrams: 02/20/18 21:17 02/20/18 21:17 Lab Results 02/20/18 02/20/18 02/20/18 Range/Units 21:17 21:17 23:42 WBC 5.9 (4.5-11.0) T/MM3 RBC 3.93 L (4.00-5.20) M/MM3 Hgb 13.9 (12-16) GM/DL Hct 39.3 (36-46) % MCV 100.0 (80-100) UM3 MCH 35.4 H (26-34) UUG MCHC 35.4 (31-37) GM/DL RDW Std Deviation 45.5 (36.9-50.2) FL Plt Count 200 (130-400) T/MM3 MPV 8.8 L (9.4-12.4) UM3 Immature Gran % (Auto) 0.0 (0.0-0.5) % Neut % (Auto) 74.4 H (33-66) % Lymph % (Auto) 17.7 L (23-45) % [place] % (Auto) 7.9 (0-9.0) % Eos % (Auto) 0.0 (0-4) % Baso % (Auto) 0.0 (0-2) % Neut # (Auto) 4.4 (1.8-7.7) T/MM3 Lymph # (Auto) 1.1 (1-4.8) T/MM3 [place] # (Auto) 0.5 (0-0.8) T/MM3 Eos # (Auto) 0.0 (0-0.5) T/MM3 Baso # (Auto) 0.0 (0-0.2) T/MM3 Abs Immat Gran (auto) 0.00 (0.00-0.03) T/MM3 VBG pH 7.527 H (7.310-7.410) VBG pCO2 42.4 (40.0-52.0) MMHG VBG pO2 23.7 L (40.0-52.0) MMHG VBG HCO3 35.2 H (22.0-26.0) MEQ/L VBG Total CO2 36.5 H (22.0-32.0) MEQ/L VBG O2 Saturation 49.0 (0.0-100.0) % VBG Base Excess 11.0 H (-5.0-5.0) MMOL/L Turbidity < 20 (0-20) Sodium 129 L (134-144) MEQ/L Potassium 4.1 D (3.6-5) MEQ/L Chloride 86 L D (98-107) MEQ/L Carbon Dioxide 36 H (22-30) MEQ/L Anion Gap 7 (5-15) meq/L BUN 13.0 (7-17) MG/DL Creatinine 0.4 L (0.7-1.2) mg/dL GFR Calculation 163 BUN/Creatinine Ratio 33 H (6-26) RATIO Glucose 97 (65-110) MG/DL Calculated Osmolality 249 L (261-280) MOSM/KG Calcium 9.7 (8.4-10.2) MG/DL Total Bilirubin 0.60 (0.20-1.30) MG/DL Icterus Index < 2 (0-7) AST 32 (14-36) U/L ALT 36 H (1-35) U/L Alkaline Phosphatase 108 (38-126) U/L Troponin I < 0.012 (0-0.12) ng/ml NT-Pro-B Natriuret Pep 151 (0-175) pg/mL Total Protein 6.6 (6.3-8.2) g/dL Albumin 4.1 (3.5-5.0) g/dL Globulin 2.5 (2.4-3.6) G/DL Albumin/Globulin Ratio 1.6 (1.1-2.2) RATIO Specimen Hemolysis < 15 (0-25) - Radiology Data CTA Chest: Extensive upper lobe emphysema. No PE. No infiltrate. - EKG Data EKG #1 EKG results narrative: Sinus rhythm. 82 bpm. No STEMI. Normal EKG. Disposition Clinical Impression: Acute exacerbation of chronic obstructive airways disease Disposition: To [facility] [place] Care Condition: Stable Time of Disposition: 23:00 (Admit. Dr. Triana. ) - Seen By: physician
[2018-02-20] MEDS: SALINE FLUSH 10ml SYRINGE IVF PRN ×2 (21:15→23:58)
[2018-02-20] MEDS ORDERED: ALBUTEROL/IPRATROPIUM 2.5mg-0.5mg/3ml NEB AEROSOL ONE (21:45)
[2018-02-20] MEDS ORDERED: IOHEXOL 350mg/ml 50ml INJECTION ONE (22:01)
[2018-02-20] MEDS ORDERED: SALINE FLUSH 10ml SYRINGE ONE (22:02)
[2018-02-20] MEDS ORDERED: METHYLPREDNISOLONE SOD SUCC 125mg/2ml INJECTION IVP ONE (23:31)
[2018-02-20] MEDS ORDERED: LEVOFLOXACIN PB 750 MG/150 ML BAG IV SCH (23:45)
[2018-02-21] MEDS ORDERED: ACETAMINOPHEN 500 MG TABLET PO PRN (00:20)
[2018-02-21] MEDS ORDERED: ALBUTEROL 2.5mg/3ml (0.083%) NEB AEROSOL PRN (00:20)
[2018-02-21] MEDS ORDERED: MORPHINE SULFATE 2mg INJ IVP PRN (00:20)
--- NOTE | 2018-02-21 01:17 | History & Physical Report ---
History of Present Illness Date: 02/21/18 Chief complaint: short of breath HPI: This is a 62 y/o patient with a history of chronic hypoxic resp failure /COPD who was discharged this past Tuesday after an episode of pneumonia. The patient reports that she knows she left too early. The patient has reported increased short of breath. She denies fever, has had some chills and no cough. Increased IRVIN primarily. In the ED the patient has a stable CXR. She is audibly wheezing. She is treated with usual copd medications and will be admitted for CoPD exacerbation. Review of Systems Review of systems: no headache, no change in vision, no fever, has chills, no sweats, no neck or jaw pain. describes her usual copd burning in her chest. no cough, sig IRVIN, no pnd, no heart palpitations, no abdomen pain, no nausea/vomiting, had a bm this am, normal, (constipated up to this point), no edema to legs, no focal neurological complaints, no skin rashes. 12 point ROS otherwise negative except for outlined above. Past Medical History Medical History: Medical History (Last Updated 02/16/18 @ 10:42 by Tessa Ko MD) DDD (degenerative disc disease) DJD (degenerative joint disease) Fibromyalgia Nephrolithiasis Pulmonary emboli 15-20 years ago Throat cancer Anxiety Asthma Bone disorder COPD (chronic obstructive pulmonary disease) Cataracts, bilateral Colon polyps DVT (deep venous thrombosis) Depression Migraine headache Neuropathy Osteoporosis Pneumonia Surgical History: donald cataracts 2009. partial hysterecomy. Placement of PEG tube 08/12/2017. Insertion of Power Port 08/12/2017. Laryngeal cancer resection/lymph node biopsy July 2017 Family History: Family History (Last Reviewed 01/04/18 @ 13:58 by SHONA Kevin) Mother Arthritis DVT (deep vein thrombosis) in Cancer of lung IBS (irritable bowel syndrome) Muscle disease Fibromyalgia Sister Arthritis Cancer of utero-ovarian Muscle disease Brother Cancer of lung Father Heart failure High blood pressure High cholesterol Family History: As Above - Social History Smoking status: Current every day smoker Alcohol intake frequency: does not drink Housing: house Household members: spouse Current occupational status: retired Current residence: Apartment/Private Home Medications Home Medications Medication Instructions Recorded Confirmed Type Methocarbamol [Robaxin] 500 mg PO TID PRN 02/15/18 02/20/18 History Multivitamin [One Daily] 1 each PO DAILY 02/15/18 02/20/18 History Tramadol [Ultram] 50 mg PO TID PRN 02/15/18 02/20/18 History Albuterol Neb (0.083%) [Proventil 2.5 mg AEROSOL QID #120 vial 02/18/18 Rx Neb (0.083%)] Albuterol Sulfate [Proventil Hfa 2 puff INH QID PRN #18 g 02/18/18 02/20/18 Rx 90mcg] Ipratropium [place] 1 dose AEROSOL QID #120 vial 02/18/18 02/20/18 Rx Levofloxacin [Levaquin] 750 mg PO ACB #3 tab 02/18/18 02/20/18 Rx Saliva Substitute Mouth [place] 3 spray PO PRN PRN spray 02/18/18 02/20/18 Rx [Biotene Moisturizing Mouth [place]] methylPREDNISolone 32 mg PO DAILY #10 tab 02/18/18 02/20/18 Rx [Methylprednisolone] Citalopram [Celexa] 40 mg PO DAILY 02/20/18 02/20/18 History Furosemide [Lasix 20 mg Tab] 20 mg PO DAILY PRN 02/20/18 02/20/18 History Gabapentin [Neurontin] 1,200 mg PO BID 02/20/18 02/20/18 History Magnesium Oxide [Magnesium] 400 mg PO DAILY 02/20/18 02/20/18 History Morphine Sulfate *SR* [Ms Contin] 15 mg PO TID 02/20/18 02/20/18 History Potassium Chloride 10 meq PO DAILY 02/20/18 02/20/18 History Trazodone HCl 150 mg PO HS 02/20/18 02/20/18 History Allergies Allergy/AdvReac Type Severity Reaction Status Date / Time venom-honey bee Allergy Severe ANAPHYLAXIS Verified 02/20/18 20:19 prednisone Allergy Intermediate SHAKY,PERSONALITY Verified 02/20/18 20:19 CHANGES latex Allergy Mild RASH,SKIN Verified 02/20/18 20:19 COMES OFF bupropion Allergy Unknown HYPERTENSIO Verified 02/20/18 20:19 N etodolac Allergy Unknown Verified 02/20/18 20:19 codeine AdvReac Unknown PERSONALITY Verified 02/20/18 20:19 CHANGES Exam Vital Signs: Temperature 96.8 F 02/21/18 00:20 Pulse Rate 85 02/21/18 00:20 Respiratory Rate 18 02/21/18 00:20 Blood Pressure 133/81 02/21/18 00:20 Pulse Oximetry 96 02/21/18 00:20 Telemetry Rhythm: Sinus Rhythm Height/Weight/BMI: Height 1.63 m Weight 42.6 kg Body Mass Index 16.1 - Constitutional Present: no acute distress, well nourished, thin, cachectic, cooperative - Routine HEENT Exam Head: Present: normocephalic, atraumatic Eye: Present: PERRL ENT: Present: mucous membranes dry - Routine Neck Exam Present: supple, full ROM - Routine Respiratory Exam Comments: inspirtory wheezes bilaterally, no rhonchi - Routine Cardiovascular Exam Present: RRR, no murmur - Routine Abdominal Exam Present: non distended, non tender - Routine Extremities Exam Present: full ROM. Absent: edema - Routine Back/Spine/Pelvis Exam Back/Spine: Present: full ROM - Routine Skin Exam Present: intact - Routine Neurological Exam Present: alert, oriented X3, moving all extremities, normal tone - Routine Psychiatric Exam Present: normal affect, normal thought process Results - Labs CBC & Chem 7: 02/21/18 05:07 02/21/18 05:07 Labs: labs reviewed and will be discussed below pCXR no acute infiltrate EKG sinus without ischemic changes Assessment and Plan (1) Acute exacerbation of chronic obstructive airways disease Current visit: No Status: Acute (2) Respiratory failure with hypoxia Problem details: Acute on chronic Current visit: Yes Status: Acute (3) Bronchitis Current visit: Yes Status: Acute (4) Hyponatremia Current visit: No Status: Chronic Assessment and Plan: 1. copd exacerbation acute POA: followup vbg for baseline, solumedrol, duoneb , albuterol, gentle hydration. reassess with labs and exam in am 2. bronchitis acute POA: finish levaquin. cxr no obvious infiltrate 3. hypoxic respirtory failure acute on chronic POA: due to # 1. on 1.5 baseline, now with 3 and desats when exercises. 4. hyponatremia acute POA: hypovolemia. fluids and reassess with labs in the am 5. FMS chronic POA: continue long acting meds. prn morphine 6. tobacco abuse chronic POA: student counselor to stop 7. dVT ppx; SCD, lovenox 8. gastric ppx; PPI DVT Prophylaxis: SCD's, Lovenox GI Prophylaxis: Protonix Resuscitation Status: Full Code - Time spent with patient Time with patient PN: 30 minutes - Physician Narrative Physician: Tessa Ko MD Narrative: Date: 02/21/18 Time: 1600 Dr. Triana's note reviewed. Mrs. Garcia interviewed and examined. CC: Dyspnea/hypoxia HPI: Mrs. Garcia is known from recent hospitalization. She is a 62-year-old female with chronic COPD and chronic hypoxic respiratory failure who was hospitalized 02/15-02/18 with an acute COPD exacerbation and worsening of chronic hypoxia. She was treated in conventional fashion and showed progressive improvement although remained on 3-4 L supplemental oxygen instead of 1.5 L which is baseline. Patient was very anxious to discharge on 02/18 although was marginal for discharge at that time. She was able to fill prescriptions and has been using nebulized medications since discharge (although she reports using breathing treatments only 3 times a day and that she has not added any supplemental treatments) and she has tolerated oral Solu-Medrol well. As of yesterday afternoon when post discharge phone call was made she was doing well. Shortly thereafter she developed increased dyspnea and wheezing without sputum production. She had more trouble maintaining oxygen saturations and noted that on 3 L of oxygen at rest she was desaturating into the mid 80s. She will be presented to the emergency room and was subsequently readmitted and started on IV steroids. Chest imaging was consistent with COPD. Patient acknowledges that she's been smoking since discharge (taking oxygen off to do so) and that was part of the reason she felt it was necessary to discharge. PH/SH/FH: agree with that recorded above by Dr. Triana. Patient's is her alternate decision maker and she reiterated her previously stated DO NOT INTUBATE order. ROS: 10 point review as recorded above by Dr. Triana with addition of chronic dry mouth due to prior radiation therapy and tingling in her arms and legs which he attributes to chemotherapy. EXAM: General-thin female, slightly anxious, cooperative; 97.2, 144/87, 94, 91% on 3.5 L supplemental O2 HEENT-PERRL, EOMI without nystagmus, conjunctiva clear, sclera anicteric, conjugate gaze, facial structures symmetric, oropharynx clear, neck supple and without adenopathy Lungs-decreased breath sounds throughout, good inspiratory effort, faint expiratory wheezes and prolonged expiratory phase bilaterally Cardiac-regular rhythm, S1-S2, decreased heart tones Abd-soft, nontender, bowel sounds present, no palpable mass, G-tube site unremarkable Ext-without edema Skin-no wounds evident, no generalized rash; PAC right upper chest wall Neuro-sensation intact to light touch 4 extremities, minor tremor with arms outstretched, motor tone/power within normal limits, cranial nerves 3-12 intact Psych-slightly anxious, flat affect DATA: CBC as per Dr. Triana's note, repeat WBC 4.3. Venous blood gas reviewed. Sodium 129-128 (discharged at 133) CTA chest reviewed by myself revealed bullous COPD without infiltrate or pulmonary emboli A/P: Acute/chronic hypoxic respiratory failure COPD exacerbation Chronic hypercarbic respiratory failure Hyponatremia-chronic due to large-volume water intake Dry mouth Throat/laryngeal carcinoma Chronic tobacco abuse Anxiety/depression History DVT/PE-remote Mild malnutrition Continue IV steroids, aggressive breathing treatments, oral Levaquin, and nicotine cessation efforts. Patient used nicotine patches during recent hospitalization but these proved ineffective in controlling nicotine craving; she is intolerant of Wellbutrin and dry mouth will preclude use of gum per patient history. May be best served with Nicotrol inhaler or nicotine lozenges at discharge. Resume salt tablets (discharged with 1 teaspoon salt by mouth or per G-tube in addition to substituting some water with electrolyte solutions), will need greater salt intake at discharge to account for fluid intake. Resume G-tube feedings; may take foods orally as well as tolerates. Lovenox for DVT prophylaxis. Continue home anxiety/depression medications in addition to Neurontin for neuropathy. Consider pulmonary consultation. Old record reviewed. DO NOT INTUBATE ordered. Hospital Course Summary Disclaimer: The visit summary below is not to be considered part of the above Progress Note.
[2018-02-21] MEDS: NS 1,000 ML IV SCH ×2 (01:29→12:16)
[2018-02-21] MEDS: PANTOPRAZOLE 40 MG INJECTION IVP SCH ×2 (01:30→14:08)
[2018-02-21] MEDS: METHYLPREDNISOLONE SOD SUCC 125mg/2ml INJECTION IVP SCH ×4 (03:33→21:20)
[2018-02-21] MEDS: ALBUTEROL/IPRATROPIUM 2.5mg-0.5mg/3ml NEB AEROSOL SCH ×5 (05:35→22:21)
--- NOTE | 2018-02-21 08:26 | CT Scan Report ---
Indication: sob PROCEDURE: CT angio pulm emboli: Encounter: Initial Comparison: None Technique: Axial CT pulmonary angiographic phase images were performed through the chest after the administration of intravenous contrast. Coronal and Sagittal MIP reconstructed images were created and reviewed. Automated Exposure Control and Iterative Reconstruction dose reducing techniques were utilized. Contrast: Omnipaque 350 49 mL Findings: Pulmonary arteries: Exam is diagnostic to the subsegmental pulmonary arterial level. No filling defects identified to suggest a pulmonary embolus. Other findings: Severe emphysema. No pneumonia, pleural effusion or pneumothorax. The central airways are patent. No axillary or mediastinal adenopathy. Heart size is normal. Upper abdomen shows no acute findings. Impression: No pulmonary embolus. There is a preliminary report by virtual radiologic. .
[2018-02-21] MEDS ORDERED: SALIVA SUBSTITUTE MOUTH SPRAY 1.5oz PO PRN (09:48)
[2018-02-21] MEDS: GABAPENTIN 600 MG TABLET PO SCH ×2 (10:43→21:18)
[2018-02-21] MEDS: CITALOPRAM 40 MG TABLET PO SCH (10:43)
[2018-02-21] MEDS: MAGNESIUM OXIDE 400 MG TABLET PO SCH (10:47)
[2018-02-21] MEDS: ENOXAPARIN 40 MG/0.4 ML INJECTION SQ SCH (10:48)
[2018-02-21] MEDS: NICOTINE 21 MG PATCH TD SCH (11:16)
[2018-02-21] MEDS ORDERED: LEVOFLOXACIN PB 500 MG/100 ML BAG IV SCH (20:00)
[2018-02-21] MEDS: SODIUM CHLORIDE 1 GM TABLET PO SCH (21:18)
[2018-02-21] MEDS: TRAZODONE 50 MG TABLET PO SCH (21:19)
[2018-02-21] MEDS: LEVOFLOXACIN 500 MG TABLET PO SCH (21:19)
[2018-02-21] MEDS: SALINE FLUSH 10ml SYRINGE IVF PRN (21:31)
[2018-02-22] MEDS: PANTOPRAZOLE 40 MG INJECTION IVP SCH (01:14)
[2018-02-22] MEDS: SALINE FLUSH 10ml SYRINGE IVF PRN ×3 (01:15→21:00)
[2018-02-22] MEDS: METHYLPREDNISOLONE SOD SUCC 125mg/2ml INJECTION IVP SCH ×4 (03:03→21:00)
[2018-02-22] MEDS: ALBUTEROL/IPRATROPIUM 2.5mg-0.5mg/3ml NEB AEROSOL SCH ×4 (04:00→22:29)
[2018-02-22] MEDS: GABAPENTIN 600 MG TABLET PO SCH ×2 (09:56→21:00)
[2018-02-22] MEDS: CITALOPRAM 40 MG TABLET PO SCH (09:56)
[2018-02-22] MEDS: MAGNESIUM OXIDE 400 MG TABLET PO SCH (09:56)
[2018-02-22] MEDS: SODIUM CHLORIDE 1 GM TABLET PO SCH ×2 (09:56→21:00)
[2018-02-22] MEDS: ENOXAPARIN 40 MG/0.4 ML INJECTION SQ SCH (09:57)
[2018-02-22] MEDS: NICOTINE 21 MG PATCH TD SCH (09:58)
[2018-02-22] MEDS: NICOTINE PATCH REMOVAL TD SCH (10:00)
--- NOTE | 2018-02-22 11:19 | Progress Note ---
- Date 02/22/18 Subjective: Diana is feeling better. She is breathing more comfortably. She has a slight cough that is minimally productive. She mostly c/o dry mouth and really wants the fluid restriction lifted. When she was just sent home she wasn't on a fluid restriction. She also has increasing fibromyalgia discomfort which she attributes to the hospital beds. She denies abdominal pain or nausea. We discussed the role of smoking in her readmission and she is determined to quit. Objective Vital signs: Temperature 97.5 F 02/22/18 00:37 Pulse Rate 93 02/22/18 00:37 Respiratory Rate 17 02/22/18 04:00 Blood Pressure 143/90 H 02/22/18 00:37 Pulse Oximetry 91 02/22/18 04:00 Height/Weight/BMI: Height 1.63 m Weight 41.6 kg Body Mass Index 16.1 - Constitutional Present: no acute distress, well nourished, well developed, thin - Routine HEENT Exam Head: Present: normocephalic Eye: Present: PERRL. Absent: conjunctival icterus, scleral injection ENT: Present: mucous membranes dry, oropharynx clear - Routine Respiratory Exam Present: decreased breath sounds, wheezes (faint expiratory) - Routine Cardiovascular Exam Present: RRR, S1, S2 - Routine Abdominal Exam Present: soft, normoactive bowel sounds, non distended, non tender - Routine Extremities Exam Present: no edema, pulses intact - Routine Musculoskeletal Exam Musculoskeletal: Present: moving extremities well - Routine Skin Exam Present: intact, dry, warm - Routine Neurological Exam Present: alert, oriented X3, normal speech - Routine Psychiatric Exam Present: normal affect, normal thought process, cooperative Results - Labs CBC & Chem 7: 02/22/18 04:18 02/22/18 04:18 Microbiology Results: Microbiology 02/22/18 04:34 Sputum, Expectorated Gram Stain - Final 02/22/18 04:34 Sputum, Expectorated Sputum Culture - Preliminary Culture Initiated - Results Pending Assessment and Plan (1) Hyponatremia Current visit: No Status: Chronic (2) Acute exacerbation of chronic obstructive airways disease Current visit: No Status: Acute (3) Respiratory failure with hypoxia Problem details: Acute on chronic Current visit: Yes Status: Acute (4) Bronchitis Current visit: Yes Status: Acute Assessment and Plan: A/P: Acute/chronic hypoxic respiratory failure COPD exacerbation Chronic hypercarbic respiratory failure Hyponatremia-chronic due to large-volume water intake Dry mouth Throat/laryngeal carcinoma Chronic tobacco abuse Anxiety/depression History DVT/PE-remote Mild malnutrition Still requiring 3L. Continue IV steroids, aggressive breathing treatments, oral Levaquin, and nicotine cessation efforts. Sputum culture pending. Na improved to 137. Will lift fluid restrictions - recommend for her to drink more Gatorade-type drinks. Continue salt tabs. Reassess BMP in am. Continue PPI for gastric protection on steroids - will change to PO. DVT Prophylaxis: SCD's, Lovenox GI Prophylaxis: Protonix Resuscitation Status: Do Not Intubate - Physician Narrative Physician: Rhea Silveira MD Narrative: Date: 02/22/18 Time: 1253 Mr. Garcia was independently interviewed and examined by me. She does report feeling better and breathing better this morning. We did have a long talk about smoking cessation. She really does want to try to quit. Currently she denies any fever or chills. She has a slight cough but no significant sputum production. She complains of a dry mouth, this is chronic for her. She denied any other complaints to me. She reports eating well. She reports nausea or vomiting. Her bowels are moving. On physical exam: Gen: alert and oriented. NAD Skin: warm and dry HEENT: NC/AT PERRL, EOMI, Sclera, lids and conjunctiva wnl, dry MM, OP clear Neck: supple. No JVD, Carotids 2+ without bruits. Lungs: Diminished bilaterally, Exp wheezes, No rales or rhonchi CV: regular. No murmur, rub or gallop Abd: soft. NT/ND, +BS MS: No edema. Good strength and ROM. Neuro: No focal deficit Psy: normal mood and affect Assessment and plan: Acute/chronic hypoxic/hypercarbic respiratory failure -counseled on smoking cessation. -Resp therapy -Sputum + for moderate gm+ cocci in pairs -Still requiring 3 liters oxygen -On levaquin -IV steroids COPD exacerbation -Resp therapy -IV steroids Hyponatremia -chronic due to large-volume water intake -Salt per gastric tube daily -Encourage fluids with electrolytes. Dry mouth -H/o radiation therapy -On biotene moisturizing mouth spray Throat/laryngeal carcinoma -S/P radiation Chronic tobacco abuse -Counseled on cessation -Nicotine patch Anxiety/depression -On trazodone at HS -May need some prn daytime -She is also on morphine for air hunger, anxiety and pain -citalopram Chronic pain issues -Morphine -Robaxin History DVT/PE-remote Mild malnutrition -Encourage protein intake GERD -PPI Edema -Lasix prn Prophylaxis -PPI and Lovenox I have reviewed her labs, notes and imaging. I agree with the above PRODUCTION SUPPLY EQUIPMENT TENDER assessment and plan. Hospital Course Summary Disclaimer: The visit summary below is not to be considered part of the above Progress Note. Hospital Course: 02/21/18 Continue IV steroids, aggressive breathing treatments, oral Levaquin, and nicotine cessation efforts. Patient used nicotine patches during recent hospitalization but these proved ineffective in controlling nicotine craving; she is intolerant of Wellbutrin and dry mouth will preclude use of gum per patient history. May be best served with Nicotrol inhaler or nicotine lozenges at discharge. Resume salt tablets (discharged with 1 teaspoon salt by mouth or per G-tube in addition to substituting some water with electrolyte solutions), will need greater salt intake at discharge to account for fluid intake. Resume G-tube feedings; may take foods orally as well as tolerates. Lovenox for DVT prophylaxis. Continue home anxiety/depression medications in addition to Neurontin for neuropathy. Consider pulmonary consultation. DO NOT INTUBATE ordered. 02/22/18 Still requiring 3L. Continue IV steroids, aggressive breathing treatments, oral Levaquin, and nicotine cessation efforts. Sputum culture pending. Na improved to 137. Will lift fluid restrictions - recommend for her to drink more Gatorade-type drinks. Continue salt tabs. Reassess BMP in am. Continue PPI for gastric protection on steroids - will change to PO.
[2018-02-22] MEDS: LEVOFLOXACIN 500 MG TABLET PO SCH (20:59)
[2018-02-22] MEDS: TRAZODONE 50 MG TABLET PO SCH (21:00)
[2018-02-22] MEDS: BUDESONIDE INH.SOLN 0.5mg/2ml NEB AEROSOL SCH (22:29)
[2018-02-23] MEDS: METHYLPREDNISOLONE SOD SUCC 125mg/2ml INJECTION IVP SCH ×3 (03:16→21:21)
[2018-02-23] MEDS: SALINE FLUSH 10ml SYRINGE IVF PRN ×2 (03:16→21:26)
[2018-02-23] MEDS: ALBUTEROL/IPRATROPIUM 2.5mg-0.5mg/3ml NEB AEROSOL SCH ×4 (04:43→23:32)
[2018-02-23] MEDS: PANTOPRAZOLE 40 MG TABLET PO SCH (06:10)
[2018-02-23] MEDS ORDERED: PANTOPRAZOLE 20 MG TABLET PO SCH (06:30)
[2018-02-23] MEDS: CITALOPRAM 40 MG TABLET PO SCH (08:50)
[2018-02-23] MEDS: MAGNESIUM OXIDE 400 MG TABLET PO SCH (08:50)
[2018-02-23] MEDS: GABAPENTIN 600 MG TABLET PO SCH ×2 (08:50→21:22)
[2018-02-23] MEDS: NICOTINE 21 MG PATCH TD SCH (08:50)
[2018-02-23] MEDS: SODIUM CHLORIDE 1 GM TABLET PO SCH ×2 (08:50→21:22)
[2018-02-23] MEDS: NICOTINE PATCH REMOVAL TD SCH (08:51)
[2018-02-23] MEDS: ENOXAPARIN 40 MG/0.4 ML INJECTION SQ SCH (08:52)
[2018-02-23] MEDS: SENNA + DOCUSATE TABLET PO PRN ×2 (09:38→21:22)
[2018-02-23] MEDS: POLYETHYL GLYCOL 3350 17gm PACKET PO PRN (09:38)
[2018-02-23] MEDS: SALIVA SUBSTITUTE MOUTHWASH 237ml MM SCH ×5 (09:38→21:23)
[2018-02-23] MEDS: BUDESONIDE INH.SOLN 0.5mg/2ml NEB AEROSOL SCH ×2 (10:33→23:31)
[2018-02-23 12:29] VITALS: BMI 16.5
--- NOTE | 2018-02-23 14:38 | Progress Note ---
- Date 02/23/18 Subjective: Diana feels much better today. She was off oxygen for about an hour. She was able to ambulate without oxygen as well, and while she felt a little dyspneic with activity, it was overall much improved. She denies chest pain. She has her standard diffuse fibromyalgia pain. She denies weakness/lightheadedness. Her appetite has been a little reduced b/c she feels bloated and constipated. She has not had any n/v. The food she's eating orally have been healthy choices. Objective Vital signs: Temperature 96.9 F 02/22/18 23:03 Pulse Rate 106 H 02/23/18 07:00 Respiratory Rate 16 02/23/18 10:32 Blood Pressure 132/78 02/23/18 07:00 Pulse Oximetry 90 02/23/18 10:32 Height/Weight/BMI: Height 1.63 m Weight 43.8 kg Body Mass Index 16.5 - Constitutional Present: no acute distress, well nourished, well developed, thin, cachectic - Routine HEENT Exam Head: Present: normocephalic Eye: Present: PERRL. Absent: conjunctival icterus, scleral injection ENT: Present: mucous membranes dry - Routine Respiratory Exam Present: decreased breath sounds - Routine Cardiovascular Exam Present: RRR, S1, S2 - Routine Abdominal Exam Present: normoactive bowel sounds, non tender, distended - Routine Extremities Exam Present: no edema, pulses intact - Routine Back/Spine/Pelvis Exam Back/Spine: Present: full ROM - Routine Musculoskeletal Exam Musculoskeletal: Present: moving extremities well - Routine Skin Exam Present: intact, dry, warm - Routine Neurological Exam Present: alert, oriented X3, normal speech - Routine Psychiatric Exam Present: normal affect, normal thought process, cooperative Results - Labs CBC & Chem 7: 02/23/18 04:27 02/23/18 04:27 Microbiology Results: Microbiology 02/22/18 04:34 Sputum, Expectorated Gram Stain - Final 02/22/18 04:34 Sputum, Expectorated Sputum Culture - Preliminary Early growth Assessment and Plan (1) Hyponatremia Current visit: No Status: Chronic (2) Acute exacerbation of chronic obstructive airways disease Current visit: No Status: Acute (3) Respiratory failure with hypoxia Problem details: Acute on chronic Current visit: Yes Status: Acute (4) Bronchitis Current visit: Yes Status: Acute Assessment and Plan: A/P: Acute/chronic hypoxic respiratory failure COPD exacerbation Chronic hypercarbic respiratory failure Hyponatremia-chronic due to large-volume water intake Dry mouth Throat/laryngeal carcinoma Chronic tobacco abuse Anxiety/depression History DVT/PE-remote Mild malnutrition O2 needs decreasing; able to tolerate time off oxygen today. Decrease frequency of Solu-Medrol from QID to BID. She should still have methylprednisolone at home from her last admission when she's ready for discharge. Likely will be enrolled in transitional care program. Need to emphasize smoking cessation. Continue Levaquin; noted increase in bandemia to 10% on labs - reassess in am. Na stable at 137. Constipation - bowel agents added. Possible home tomorrow if breathing continues to improve. DVT Prophylaxis: Lovenox GI Prophylaxis: Protonix - Physician Narrative Physician: Rhea Silveira MD Narrative: Date: 02/23/18 Time: 1728 Miss Garcia was independently interviewed and examined by me. She has been up to the shower. She has walked around the halls. She has even been off oxygen for a while and the lowest saturation with 87%. She is feeling much better. She denies fever or chills. She denies chest pain or palpitations. She denies weakness or lightheadedness. She denied nausea or vomiting. She is trying to eat better. I told her there is a good chance she could go home tomorrow if she continues to feel this well. Currently she is only on 1 L of oxygen. She has been afebrile. Her white blood count is normal but she did have 10% bands today. We will watch that 2 insure it is coming down. Physical exam: Gen: alert and oriented. NAD Skin: warm and dry HEENT: NC/AT PERRL, EOMI, Sclera, lids and conjunctiva wnl, dry MM, OP clear Neck: supple. No JVD, Carotids 2+ without bruits. Lungs: Diminished bilaterally, Exp wheezes CV: regular. No murmur, rub or gallop Abd: soft. NT/ND, +BS MS: No edema. Good strength and ROM. Neuro: No focal deficit Psy: normal mood and affect Acute/chronic hypoxic/hypercarbic respiratory failure -counseled on smoking cessation. -Resp therapy -Sputum + for moderate gm+ cocci in pairs -oxygen requirements are decreasing -On levaquin -IV steroids-agree with decreasing dose to BID COPD exacerbation -Resp therapy -IV steroids Hyponatremia -chronic due to large-volume water intake -Salt per gastric tube daily -Encourage fluids with electrolytes. Dry mouth -H/o radiation therapy -On biotene moisturizer Throat/laryngeal carcinoma -S/P radiation Chronic tobacco abuse -Counseled on cessation -Nicotine patch Anxiety/depression -On trazodone at HS -May need some prn daytime -She is also on morphine for air hunger, anxiety and pain -citalopram Chronic pain issues -Morphine -Robaxin History DVT/PE-remote Mild malnutrition -Encourage protein intake GERD -PPI Edema -Lasix prn Constipation -bowel agents added Prophylaxis -PPI and Lovenox I have reviewed her labs, notes and imaging. Patient has been discussed in detail with Kamilah Hughes APRN. I agree with the above VEHICLE CONTROLS ENGINEER assessment and plan. Hospital Course Summary Disclaimer: The visit summary below is not to be considered part of the above Progress Note. Hospital Course: 02/21/18 Continue IV steroids, aggressive breathing treatments, oral Levaquin, and nicotine cessation efforts. Patient used nicotine patches during recent hospitalization but these proved ineffective in controlling nicotine craving; she is intolerant of Wellbutrin and dry mouth will preclude use of gum per patient history. May be best served with Nicotrol inhaler or nicotine lozenges at discharge. Resume salt tablets (discharged with 1 teaspoon salt by mouth or per G-tube in addition to substituting some water with electrolyte solutions), will need greater salt intake at discharge to account for fluid intake. Resume G-tube feedings; may take foods orally as well as tolerates. Lovenox for DVT prophylaxis. Continue home anxiety/depression medications in addition to Neurontin for neuropathy. Consider pulmonary consultation. DO NOT INTUBATE ordered. 02/22/18 Still requiring 3L. Continue IV steroids, aggressive breathing treatments, oral Levaquin, and nicotine cessation efforts. Sputum culture pending. Na improved to 137. Will lift fluid restrictions - recommend for her to drink more Gatorade-type drinks. Continue salt tabs. Reassess BMP in am. Continue PPI for gastric protection on steroids - will change to PO. 02/23/18 O2 needs decreasing; able to tolerate time off oxygen today. Decrease frequency of Solu-Medrol from QID to BID. She should still have methylprednisolone at home from her last admission when she's ready for discharge. Likely will be enrolled in transitional care program. Need to emphasize smoking cessation. Continue Levaquin; noted increase in bandemia to 10% on labs - reassess in am. Na stable at 137. Constipation - bowel agents added. Possible home tomorrow if breathing continues to improve.
[2018-02-23] MEDS: TRAZODONE 50 MG TABLET PO SCH (21:21)
[2018-02-23] MEDS: LEVOFLOXACIN 500 MG TABLET PO SCH (21:23)
[2018-02-24] MEDS: ALBUTEROL/IPRATROPIUM 2.5mg-0.5mg/3ml NEB AEROSOL SCH ×2 (05:14→11:08)
[2018-02-24] MEDS: BUDESONIDE INH.SOLN 0.5mg/2ml NEB AEROSOL SCH (05:15)
[2018-02-24] MEDS: PANTOPRAZOLE 40 MG TABLET PO SCH (05:34)
[2018-02-24 07:17] VITALS: BP 133/88; PULSE 102; TEMP 96.3
[2018-02-24] MEDS: POLYETHYL GLYCOL 3350 17gm PACKET PO PRN (09:12)
[2018-02-24] MEDS: ENOXAPARIN 40 MG/0.4 ML INJECTION SQ SCH (09:12)
[2018-02-24] MEDS: SALIVA SUBSTITUTE MOUTHWASH 237ml MM SCH ×2 (09:13→13:13)
[2018-02-24] MEDS: SALINE FLUSH 10ml SYRINGE IVF PRN (09:13)
[2018-02-24] MEDS: NICOTINE 21 MG PATCH TD SCH (09:14)
[2018-02-24] MEDS: METHYLPREDNISOLONE SOD SUCC 125mg/2ml INJECTION IVP SCH (09:14)
[2018-02-24] MEDS: GABAPENTIN 600 MG TABLET PO SCH (09:15)
[2018-02-24] MEDS: CITALOPRAM 40 MG TABLET PO SCH (09:15)
[2018-02-24] MEDS: MAGNESIUM OXIDE 400 MG TABLET PO SCH (09:15)
[2018-02-24] MEDS: SENNA + DOCUSATE TABLET PO PRN (09:15)
[2018-02-24] MEDS: SODIUM CHLORIDE 1 GM TABLET PO SCH (09:15)
[2018-02-24] MEDS: NICOTINE PATCH REMOVAL TD SCH (09:16)
--- NOTE | 2018-02-24 10:50 | Discharge Summary ---
Discharge Information Date of admission: 02/21/18 00:14 Anticipated date of discharge: 02/24/18 Attending Physician: Rhea Silveira MD Primary care physician: Sandip Ma MD - Discharge Diagnosis (1) Hyponatremia Status: Chronic (2) Acute exacerbation of chronic obstructive airways disease Status: Acute (3) Respiratory failure with hypoxia Status: Acute (4) Bronchitis Status: Acute Acute on chronic hypoxic/hypercapnic respiratory failure Tobacco abuse COPD acute exacerbation Hyponatremia-chronic Anxiety/depression H/O throat/laryngeal carcinoma s/p radiation Chronic pain/fibromyalgia H/O DVT/PE remote GERD Constipation Edema - Laboratory Labs: 02/24/18 05:14 02/24/18 05:14 - Microbiology Microbiology 02/22/18 04:34 Sputum, Expectorated Gram Stain - Final 02/22/18 04:34 Sputum, Expectorated Sputum Culture - Preliminary Early growth - Radiology Radiology: CTA chest 02/20/18 Severe emphysema. No pneumonia, pleural effusion or pneumothorax. The central airways are patent. No axillary or mediastinal adenopathy. Heart size is normal. Upper abdomen shows no acute findings. Impression: No pulmonary embolus. History of Present Illness HPI: This is a 62 y/o patient with a history of chronic hypoxic resp failure /COPD who was discharged this past Tuesday after an episode of pneumonia. The patient reports that she knows she left too early. The patient has reported increased short of breath. She denies fever, has had some chills and no cough. Increased IRVIN primarily. In the ED the patient has a stable CXR. She is audibly wheezing. She is treated with usual copd medications and will be admitted for CoPD exacerbation. Objective Vital signs: Temperature 96.3 F L 02/24/18 07:16 Pulse Rate 102 H 02/24/18 07:16 Respiratory Rate 18 02/24/18 07:16 Blood Pressure 133/88 02/24/18 07:16 Pulse Oximetry 92 02/24/18 07:16 Height/Weight/BMI: Height 1.63 m Weight 42.3 kg Body Mass Index 16.5 Comments: Gen: alert and oriented. NAD Skin: warm and dry HEENT: NC/AT PERRL, EOMI, Sclera, lids and conjunctiva wnl, dry MM, OP clear Neck: supple. No JVD, Carotids 2+ without bruits. Lungs: Diminished bilaterally, Exp wheezes CV: regular. No murmur, rub or gallop Abd: soft. NT/ND, +BS MS: No edema. Good strength and ROM. Neuro: No focal deficit Psy: normal mood and affect Hospital Course This is a general summary of the patient's hospital course. For more details refer to the complete medical record. Hospital course: 02/21/18 Continue IV steroids, aggressive breathing treatments, oral Levaquin, and nicotine cessation efforts. Patient used nicotine patches during recent hospitalization but these proved ineffective in controlling nicotine craving; she is intolerant of Wellbutrin and dry mouth will preclude use of gum per patient history. May be best served with Nicotrol inhaler or nicotine lozenges at discharge. Resume salt tablets (discharged with 1 teaspoon salt by mouth or per G-tube in addition to substituting some water with electrolyte solutions), will need greater salt intake at discharge to account for fluid intake. Resume G-tube feedings; may take foods orally as well as tolerates. Lovenox for DVT prophylaxis. Continue home anxiety/depression medications in addition to Neurontin for neuropathy. Consider pulmonary consultation. DO NOT INTUBATE ordered. 02/22/18 Still requiring 3L. Continue IV steroids, aggressive breathing treatments, oral Levaquin, and nicotine cessation efforts. Sputum culture pending. Na improved to 137. Will lift fluid restrictions - recommend for her to drink more Gatorade-type drinks. Continue salt tabs. Reassess BMP in am. Continue PPI for gastric protection on steroids - will change to PO. 02/23/18 O2 needs decreasing; able to tolerate time off oxygen today. Decrease frequency of Solu-Medrol from QID to BID. She should still have methylprednisolone at home from her last admission when she's ready for discharge. Likely will be enrolled in transitional care program. Need to emphasize smoking cessation. Continue Levaquin; noted increase in bandemia to 10% on labs - reassess in am. Na stable at 137. Constipation - bowel agents added. Possible home tomorrow if breathing continues to improve. 02/24/18 patient was seen this morning sitting in her chair off oxygen and satting fine. She took a walk today without oxygen and maintain her saturations as well. She' s feeling great and would like to go home. We spoke again about the absolute necessity of her getting off the cigarettes. She states her has cleared the house for her of her cigarettes and ashtrays etc. She denies fevers, chills. She has a nonproductive cough but this is not new or worse. She denies any chest pain or pressure. She denies palpitations. She is eating well. She denies nausea or vomiting. No diarrhea or constipation. No lower extremity edema. Sodium is stable. She is felt to be stable for discharge back to home. Discharge Plan - Discharge Disposition Discharge Date: 02/24/18 Disposition: Discharged Home, Self-Care *Condition: Improved Reason For Visit (Visit label in EMR): COPD exacerbation - Discharge Medications *Discharge Medications: New Acetaminophen [Tylenol] 500 mg PO Q5H PRN tab PRN Reason: Discomfort Pantoprazole Tab [Protonix Tab] 40 mg PO ACB #30 tab PEG 3350 17gm PACKET [Miralax] 17 gm PO DAILY PRN #30 packet PRN Reason: constipation Senna + Docusate [Senna Plus Tablet] 1 tab PO BID PRN tab PRN Reason: Constipation Sodium Chloride Tab [Salt Tablet] 1 gm PO BID tab Saliva Substitute Mouthwash [Biotene Dry Mouth Oral Rinse] 15 ml MM 5XD bottle Continue Methocarbamol [Robaxin] 500 mg PO TID PRN PRN Reason: Prn Orders Multivitamin [One Daily] 1 each PO DAILY Ipratropium [place] 1 dose AEROSOL QID #120 vial methylPREDNISolone [Methylprednisolone] 32 mg PO DAILY #10 tab Saliva Substitute Mouth [place] [Biotene Moisturizing Mouth [place]] 3 spray PO PRN PRN spray PRN Reason: Dry Mouth Albuterol Sulfate [Proventil Hfa 90mcg] 2 puff INH QID PRN #18 g PRN Reason: Shortness Of Air Furosemide [Lasix 20 mg Tab] 20 mg PO DAILY PRN PRN Reason: Edema Morphine Sulfate *SR* [Ms Contin] 15 mg PO TID Trazodone HCl 150 mg PO HS Tramadol [Ultram] 50 mg PO TID PRN PRN Reason: Pain Albuterol Neb (0.083%) [Proventil Neb (0.083%)] 2.5 mg AEROSOL QID #120 vial Citalopram [Celexa] 40 mg PO DAILY Magnesium Oxide [Magnesium] 400 mg PO DAILY Neurontin (gabapentin) 600 mg tablet 1,200 mg PO BID #60 tab Discontinued Levofloxacin [Levaquin] 750 mg PO ACB #3 tab Potassium Chloride 10 meq PO DAILY - Discharge Packet/Instructions *Diet: As tolerated *Activity: As tolerated *Wound Care: N/A *Expected Signs/Symptoms: N/A *Notify Physician if: Worsening SOA, fevers *During Business Hours Contact: PCP Dr. Ma *After Business Hours Contact: MD information technology auditor for Dr. Ma *Pending Lab/Results: No Pending Lab - Referrals/Follow Up *Referrals/Follow Up: Sandip Ma MD [Primary Care Provider] - 1 Week () - Patient Handouts Patient Handouts: COPD (Chronic Obstructive Pulmonary Disease) (GEN) - Dismissal Complete Discharge Instructions are:: Complete Physician Narrative - Narrative Attestation Narrative: Date: 02/24/18 Time: [id number]
[2018-02-24 11:16] VITALS: RESP 20; O2SAT 91
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
== END 2018-02-24 12:00 | disposition home or self-care (01) | DRG 190 ==
LOC: ED 20:02 → SUATTDRO 02-21 00:14 → MED 02-21 00:14
PROVIDERS: ADMIT Emergency Medicine; ATTEND Internal Medicine Cardiovascular Disease